=== PATIENT | female | born 1990 | race Caucasian/White ===

== ENCOUNTER 2016-07-16 11:24 | Day surgery (SDC) | payer OTHER ==
[~2016-07-16] VITALS: Ht 160 cm; Wt 95.0 kg
[~2016-07-16 11:24] MED LIST: /INSULEV SQ; /LOR25TA OR; BACT800T OR; BACTROBAN; novolog
[2016-07-16] MEDS ORDERED: ONDANSETRON 4MG/2ML VIAL (J2405) As Ordered ONE ×2 (11:51→21:09)
[2016-07-16] MEDS ORDERED: MORPHINE 4 MG/ML 1ML SYRINGE As Ordered ONE ×2 (11:51→15:40)
[2016-07-16 12:14] LABS: BASO # 0.1 K/mm3 (0.0-0.2); BASO % 0.4 % (0.0-1.0); EOS # 0.2 K/mm3 (0.0-0.50); LARGE UNSTAINED CELL # 0.2 K/mm3 (0.0-0.4); LARGE UNSTAINED CELL % 0.8 % (0.0-4.0); LYMPH # 2.2 K/mm3 (1.5-6.5); LYMPH % 9.5 % (24.0-44.0); MEAN CORPUSCULAR HEMOGLOBIN 29.6 pg (27.0-33.0); MEAN CORPUSCULAR HGB CONC 35.2 g/dl (32.0-36.5); MEAN CORPUSCULAR VOLUME 84.3 fl (80.0-96.0); MONO # 0.8 K/mm3 (0.0-0.8); MONO % 3.4 % (0.0-5.0); NEUTROPHILS # 19.9 K/mm3 (1.8-7.7); PLATELET COUNT, AUTOMATED 415 k/mm3 (150-450); RED CELL DISTRIBUTION WIDTH 12.8 % (11.5-14.5); WHITE BLOOD COUNT 23.4 K/mm3 (4.0-10.0)
[2016-07-16 13:13] LABS: ALBUMIN 3.5 GM/DL (3.2-5.2); ALBUMIN/GLOBULIN RATIO 1.03 (1.00-1.93); ALKALINE PHOSPHATASE 58 U/L (45-117); ALT/SGPT 23 U/L (12-78); AMYLASE 23 U/L (25-115); ANION GAP 9 MEQ/L (8-16); AST/SGOT 9 U/L (15-37); BILIRUBIN,DIRECT 0.1 MG/DL (0.0-0.2); BILIRUBIN,TOTAL 0.5 MG/DL (0.2-1.0); BLOOD UREA NITROGEN 7 MG/DL (7-18); CALCIUM LEVEL 8.5 MG/DL (8.5-10.1); CARBON DIOXIDE LEVEL 23 MEQ/L (21-32); CHLORIDE LEVEL 107 MEQ/L (98-107); CREATININE FOR GFR 0.64 MG/DL (0.55-1.02); GLOMERULAR FILTRATION RATE > 60.0 (>60); GLUCOSE, FASTING 196 MG/DL (70-105); SODIUM LEVEL 139 MEQ/L (136-145); TOTAL PROTEIN 6.9 GM/DL (6.4-8.2)
[2016-07-16 13:14] LABS: CONTROL LINE HCG INT CTR LINE PRESENT
[2016-07-16] MEDS ORDERED: ISOVUE-370 76% 100ML VIAL (Q9967) As Ordered ONE (13:28)
--- NOTE | 2016-07-16 14:25 | REP ---
CT study of the abdomen pelvis with IV but without oral contrast: History: Appendicitis. Comparison CT study is from January 06, 2012. CT contrast dose: 100 mL of Isovue [address] findings: The lung bases are clear. There is no evidence of pleural effusion. The liver and the spleen are normal in size and homogeneous in texture postcontrast. No focal liver lesion is seen. No adrenal lesion is observed. There is calcific material layering in the dependent portion of gallbladder consistent with cholelithiasis. Gallbladder wall is not visibly thickened. Common bile duct does not appear to be dilated. Pancreas is unremarkable. The kidneys enhance symmetrically are morphologically intact. No uterine abnormality is seen. No ovarian mass lesion is seen. No free fluid is noted. Urinary bladder is unremarkable. Small and large intestinal bowel loops are normal in the abdomen and pelvis. There are some dorsal fibrotic changes in the extra spinal soft tissues and a right-sided L5 laminectomy defect is seen. Also noted is a right-sided pars defect at L5. The appendix is abnormal. It shows mural thickening, periappendiceal inflammation, and enhancement and some slight fluid thickening the pericolic gutter. It is posterior to the cecum rising along the lateral aspect of the pericolic gutter terminating just below the tip of the liver. No abscess or free air is seen. Impression: CT findings indicative of with acute appendicitis retrocecal appendix. No evidence of abscess or free air. Also noted is cholelithiasis. Postoperative changes are seen in the dorsal lumbar spine extra spinal soft tissues. A right L5 laminectomy is performed. Right-sided pars defect at L5. Signed by Willi Mcdowell MD 07/16/2016 02:50 P
[2016-07-16] MEDS ORDERED: INSUHUMDS SC (14:50)
[2016-07-16] MEDS ORDERED: IBUP800T23 PO (14:51)
[2016-07-16] MEDS ORDERED: ZOSYN 3.375 GM VIAL (J2543) As Ordered ONE (14:52)
--- NOTE | 2016-07-16 16:34 | HPE ---
DATE OF ADMISSION: 07/16/2016 CHIEF COMPLAINT: Right lower quadrant pain. HISTORY OF PRESENT ILLNESS: The patient is a 26-year-old type 1 diabetic female who presents with the history of right lower quadrant pain and nausea and vomiting. Her symptoms started around 1 o'clock this morning, woke her up from sleep with acid reflux and heartburn. This progressed on to some nausea eventually had emesis with an upset stomach. She started to take a nap early this morning and then the pain localized down the right lower quadrant. Because of that she decided to come the emergency room (ER) be evaluated. In the ER she had a white count of 23,[address] obtained which showed an abnormal appendix with periappendiceal inflammation and some fluid and thickening around the right posterior cecum. Therefore I was called to evaluate. On exam she is still having tenderness in the right lower quadrant. No fevers. Nausea and vomiting or controlled since entering the ER. No fevers, sweats or chills. No history of prior symptoms. No history of recent trauma to the area. She has been dealing with a strep throat and bronchitis for the past 2 months with elevated white count throughout the time. She was on antibiotics recently for the strep throat that just finished couple of days ago. Prior history of and L5 laminectomy. No other abdominal surgeries. PAST MEDICAL HISTORY: Type 1 diabetes, hypertension. PAST SURGICAL HISTORY: , L5 laminectomy. ALLERGIES: None. MEDICATIONS: Insulin. SOCIAL HISTORY: Smokes a pack a day. Denies any drug or alcohol usage. FAMILY HISTORY: Noncontributory. REVIEW OF SYSTEMS: Pertinent, positives, and negatives stated in the history of present illness (HPI). PHYSICAL EXAMINATION: General: Alert and oriented times three. No acute stress. Vital signs: Stable, afebrile. HEENT: Pupils equal round react to light accommodation. Heart: S1-S2 regular rate and rhythm. Lungs: Clear to auscultation bilaterally. Abdomen: Soft and tender to palpation right lower quadrant. No rebounding, guarding, rigidity. Bowel sounds positive. Extremities: No clubbing, cyanosis or edema. LABORATORY DATA: White count is 23.4, hemoglobin 14.8, platelets 415, potassium 4, glucose 196. ASSESSMENT/PLAN: The patient is 26-year-old female with signs and symptoms consistent with acute appendicitis. RECOMMENDATIONS: Proceed with laparoscopic possible open appendectomy. Risks, benefits procedure not limited but including bleeding, infection, hernia formation, damage to surrounding structures, need for further surgery discussed in detail with the patient. Informed was obtained and procedure to be planned. Postoperatively plan will be to discharge home. She will follow up me in the office in 2 weeks.
[2016-07-16] MEDS ORDERED: MIDAZOLAM INJ 2 MG/2 ML VIAL (J2250) As Ordered ONE (19:40)
[2016-07-16] MEDS ORDERED: fentaNYL 250 MCG/5 ML INJECTION (J3010) As Ordered ONE (19:41)
[2016-07-16] MEDS ORDERED: LIDOCAINE 2% INJ 100 MG/5 ML SDV (FOR ANES.) As Ordered ONE (19:42)
[2016-07-16] MEDS ORDERED: PROPOFOL 200 MG/20 ML VIAL As Ordered ONE ×2 (19:43→19:44)
[2016-07-16] MEDS ORDERED: ROCURONIUM BROMIDE 50 MG/5 ML VIAL As Ordered ONE ×2 (19:46→21:03)
--- NOTE | 2016-07-16 20:06 | EDDOCDS ---
Physician Documentation [facility] Name: Krystin Hollingsworth Age: 26 yrs Sex: Female : 1990 Arrival Date: 07/16/2016 Time: 11:24 Bed Admit Hold Private MD: Cristóbal Zelaya Disposition: 07/16/16 14:33 Hospitalization ordered by Gianluca Waite for Inpatient Admission. Preliminary diagnosis is Acute appendicitis. - Bed requested for Admit. - Status is Inpatient Admission. [facility] - Condition is Stable. - Problem is new. - Symptoms are unchanged. Historical: - Allergies: No known drug Allergies; - Home Meds: 1. humilog insulin pump daily - PMHx: Diabetes - IDDM: controlled; Hypertension; - PSHx: back surgery; ; - Social history: Smoking status: Patient uses tobacco products, current every day smoker. No barriers to communication noted, The patient speaks fluent Indian. - Family history: Not pertinent. - : The pt / caregiver states he / she is not on anticoagulants. Home medication list is obtained from the patient. - Exposure Risk Screening:: None identified. 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 js13 Vital Signs: 11:26 BP 159 / 92; Pulse 99; Resp 18; Temp 99.0(O); Pulse Ox 100% ; Weight 95.25 kg / 209.99 jrd lbs (R); Height 5 ft. 3 in. (160.02 cm); Pain 8/10; 12:37 BP 133 / 84; Pulse 89; Resp 20; Temp 99.1(TE); Pulse Ox 97% on R/A; Pain 8/10; jml1 19:56 BP 138 / 86; Pulse 96; Resp 18; Temp 98.6(T); Pulse Ox 96% on R/A; Pain 8/10; damion 20:01 BP 138 / 86; Pulse 96; Resp 16; Temp 98.6; Pulse Ox 96% ; Pain 8/10; cjh 11:26 Body Mass Index 37.20 (95.25 kg, 160.02 cm) jrd MDM: 11:47 IV Saline Lock ordered. ar2 11:47 Undress patient appropriately for examination ordered. ar2 11:47 NS 0.9% 1000 ml IV at bolus once ordered. ar2 11:47 Ondansetron 4 mg IVP once ordered. ar2 11:48 morphine 4 mg IVP once ordered. ar2 11:49 Amylase Ordered. EDMS 11:49 Basic Metabolic Profile Ordered. EDMS 11:49 CBC with Diff Ordered. EDMS 11:49 Lipase Ordered. EDMS 11:49 Liver Profile Ordered. EDMS 11:49 HCG,Serum Qualitative Ordered. EDMS 11:49 UA Ordered. EDMS 11:49 Urine Culture Ordered. EDMS 11:49 NOTHING BY MOUTH+DIET ordered. EDMS 12:31 Financial registration complete. lg 13:02 CBC with Diff Reviewed. ar2 13:02 UA Reviewed. ar2 13:19 Amylase Reviewed. ar2 13:19 Basic Metabolic Profile Reviewed. ar2 13:19 Liver Profile Reviewed. ar2 13:19 Lipase Reviewed. ar2 13:19 HCG,Serum Qualitative Reviewed. ar2 13:20 CT ABD & PELVIS: IV Contrast Only Ordered. EDMS 13:57 [facility] Payment Agreement was scanned into [employer] and attached to record. lg 14:23 Piperacillin-Tazobactam 3.375 grams IVPB once over 30 mins; dilute in 50mL of NS or D5W ar2 ordered. 14:33 BED REQUEST+ADM ordered. EDMS 15:37 Admission Orders was scanned into [employer] and attached to record. deg 15:39 morphine 4 mg IVP once ordered. yusra Administered Medications: 12:04 Drug: Ondansetron 4 mg Route: IVP; Site: left antecubital; yusra 12:04 Drug: morphine 4 mg Route: IVP; Site: left antecubital; yusra 12:05 Drug: NS 0.9% 1000 ml Route: IV; Rate: bolus; Site: left antecubital; yusra 15:04 Drug: Piperacillin-Tazobactam 3.375 grams [piperacillin-tazobactam 3.375 gram dls intravenous solution] Route: IVPB; Infused Over: 30 mins; Site: left antecubital; 16:01 Follow up: IV Status: Completed infusion dls 16:09 Follow up: IV Status: Completed infusion dls 15:44 Drug: morphine 4 mg Route: IVP; Site: left antecubital; yusra Signatures: Dispatcher [employer] EDMS Adelina España, Occupational Health Specialist Unit deg Luis ParrishRN RN Cinthya Whitaker, Reg Reg lg Reinaldo Flores, Paty Lopez PA-CRN RN js13 Elizabeth Robertson RN RN Tiffanie Kat RN dls The chart was reviewed and I authenticate all verbal orders and agree with the evaluation and treatment provided.Attachments: 13:57 [facility] Payment Agreement lg 15:37 Admission Orders deg MTDD
--- NOTE | 2016-07-16 20:07 | EDDOCDS ---
Nurse's Notes [facility] Name: Krystin Hollingsworth Age: 26 yrs Sex: Female : 1990 Arrival Date: 07/16/2016 Time: 11:24 Bed Admit Hold Private MD: Cristóbal Zelaya Diagnosis: Acute appendicitis Presentation: 07/16 11:37 Presenting complaint: Patient states: Patient states pain in her right flank area along js13 with N/V. Patient states the pain started this morning at 0100 started with heartburn and ended with right flank pain. Acute neurological deficits are not present. Mechanism of Injury: No Mechanism of Injury. Adult Sepsis Screening: The patient does not have new or worsening altered mentation. Patient's respiratory rate is less than 22. Systolic blood pressure is greater than 100. Patient has a qSOFA score of 0- Negative Sepsis Screen. Suicide/Homicide risk assessment- the patient denies having any suicidal and/or homicidal ideations and does not present with any other emotional, behavioral or mental health complaints. Status: Patient is not a consulting services associate or dependent. Transition of care: patient was not received from another setting of care. 11:37 Method Of Arrival: Walkin/Carried/Asstd js13 11:37 Acuity: KALPANA Level 3 js13 Triage Assessment: 11:40 General: Appears in no apparent distress, Behavior is appropriate for age, cooperative. js13 Pain: Location: right flank Pain currently is 8 out of 10 on a pain scale. Pt Declines HIV testing. Neurological: Level of Consciousness is awake, alert. Derm: Skin is pink, warm & dry. Musculoskeletal: No deficits noted. 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 js13 Historical: - Allergies: No known drug Allergies; - Home Meds: 1. humilog insulin pump daily - PMHx: Diabetes - IDDM: controlled; Hypertension; - PSHx: back surgery; ; - Social history: Smoking status: Patient uses tobacco products, current every day smoker. No barriers to communication noted, The patient speaks fluent Bermudian. - Family history: Not pertinent. - : The pt / caregiver states he / she is not on anticoagulants. Home medication list is obtained from the patient. - Exposure Risk Screening:: None identified. Screenin:05 Screening information is obtained from the patient. Fall risk: No risks identified. jmk Assistance ADL's: requires no assistance with activities of daily living. Abuse/DV Screen: The patient / caregiver reports he/she is: not in a situation that causes fear, pain or injury. Nutritional screening: No deficits noted. Advance Directives: Currently, there is no health care proxy. There is no active DNR order. There is no living will. There is no Power of Flame Hardening Machine Setter. Advance directive information has not previously been placed in an [facility] medical record. home support is adequate. Assessment: 12:05 General: Appears uncomfortable, skin warm and dry color satisfactory. moist p ink oral jmk mucosa. abdomen obese and non distended with bowel sounds present x 4. Increased pain with palpation to mid to right upper abdomen.. 12:05 GI: Abdomen is non- distended obese, Bowel sounds present X 4 quads. Abd is soft X 4 jmk quads Abd is tender to palpation in right upper quadrant. 12:58 General: Appears reports 7/10 discomfort. bolus continues.. jmk 14:01 General: Pt to CT via w/c and returned IV site remains patent and clear.. dls 15:45 General: Appears exam completed by dr marie. orders recvd and in progress. medicated jmk for 9/10 discomfort. awaiting admission/ bed avail.. 17:18 General: Appears states 5/10 discomfort which is adequate control per patient. jmk Continues to be NPO. Patiently awaiting OR avail.. 20:01 General: Appears in no apparent distress, uncomfortable, Behavior is appropriate for [facility] age, cooperative, pleasant, reports increased pain, awaiting OR, transport pending. GI:. GI: Reports lower abdominal pain. Derm: Skin is pink, warm & dry. Vital Signs: 11:26 BP 159 / 92; Pulse 99; Resp 18; Temp 99.0(O); Pulse Ox 100% ; Weight 95.25 kg (R); jrd Height 5 ft. 3 in. (160.02 cm); Pain 8/10; 12:37 BP 133 / 84; Pulse 89; Resp 20; Temp 99.1(TE); Pulse Ox 97% on R/A; Pain 8/10; jml1 19:56 BP 138 / 86; Pulse 96; Resp 18; Temp 98.6(T); Pulse Ox 96% on R/A; Pain 8/10; damion 20:01 BP 138 / 86; Pulse 96; Resp 16; Temp 98.6; Pulse Ox 96% ; Pain 8/10; cjh 11:26 Body Mass Index 37.20 (95.25 kg, 160.02 cm) [facility] Vitals: 11:26 Log In Time: July 16, 2016 at 11:26. d ED Course: 11:25 Patient visited by Hitesh Knight PCA. jrd 11:25 Patient moved to Waiting jrd 11:26 Cristóbal Zelaya is Private Physician. jrd 11:27 Patient visited by Hitesh Knight PCA. jrd 11:27 Patient moved to Pre RCE jrd 11:39 Triage Initiated js13 11:41 Patient visited by Paty Eubanks RN. js13 11:42 Reinaldo Flores PA-C is PHCP. ar2 11:42 Zeny Tovar MD is Attending Physician. ar2 11:42 Patient moved to Triage 2 js13 11:43 Patient visited by Reinaldo Flores PA-C. ar2 11:46 Patient moved to I3 / M3 js13 11:46 Patient moved to Triage 2 ar3 11:50 Patient moved to I3 / M3 jml1 11:51 Urine Culture Sent. ar3 11:51 UA Sent. ar3 12:05 The patient / caregiver is instructed regarding the plan of care and ED course. jmk 12:05 HCG,Serum Qualitative Sent. jmk 12:05 Amylase Sent. jmk 12:05 Basic Metabolic Profile Sent. jmk 12:05 Inserted saline lock: 20 gauge in left antecubital area. jmk 12:08 Patient visited by Luis Parrish,SENTHIL. jmk 12:38 Patient visited by Reji Garza. jml1 12:58 Patient visited by Luis Parrish,SENTHIL. jmk 13:56 Patient name changed from Krystin\S\Radha\S\Edel\S\ to Krystin\S\A\S\Edel. EDMS 13:57 [facility] Payment Agreement was scanned into [employer] and attached to record. lg 14:01 Patient visited by Tiffanie Ambrocio RN. dls 14:33 Bryden, Gianluca, DO is Hospitalizing Provider. ar2 14:44 CT ABD & PELVIS: IV Contrast Only Returned. EDMS 15:37 Admission Orders was scanned into [facility] and attached to record. deg 15:46 Patient visited by Luis Parrish RN. jmk 18:02 Patient moved to Admit Hold js13 19:57 Patient visited by Luci Hale PCA. damion 20:01 No procedures done that require assistance. [facility] Administered Medications: 12:04 Drug: Ondansetron 4 mg Route: IVP; Site: left antecubital; jmk 12:04 Drug: morphine 4 mg Route: IVP; Site: left antecubital; teok 12:05 Drug: NS 0.9% 1000 ml Route: IV; Rate: bolus; Site: left antecubital; teok 15:04 Drug: Piperacillin-Tazobactam 3.375 grams [piperacillin-tazobactam 3.375 gram dls intravenous solution] Route: IVPB; Infused Over: 30 mins; Site: left antecubital; 16:01 Follow up: IV Status: Completed infusion dls 16:09 Follow up: IV Status: Completed infusion dls 15:44 Drug: morphine 4 mg Route: IVP; Site: left antecubital; [facility] Order Results: Lab Order: Amylase; SPEC'M 07/16/16 12:38 Test: AMYLASE; Value: 23; Range: 25-115; Abnormal: Below low normal; Units: U/L; Status: F Lab Order: Basic Metabolic Profile; SPEC'M 07/16/16 12:38 Test: GLUCOSE, FASTING; Value: 196; Range: 70-105; Abnormal: Above high normal; Units: MG/DL; Status: F Test: BLOOD UREA NITROGEN; Value: 7; Range: 7-18; Units: MG/DL; Status: F Test: CREATININE FOR GFR; Value: 0.64; Range: 0.55-1.02; Units: MG/DL; Status: F Test: GLOMERULAR FILTRATION RATE; Value: > 60.0; Range: >60; Status: F Test: SODIUM LEVEL; Value: 139; Range: 136-145; Units: MEQ/L; Status: F Test: POTASSIUM SERUM; Value: 4.0; Range: 3.5-5.1; Units: MEQ/L; Status: F Test: CHLORIDE LEVEL; Value: 107; Range: 98-107; Units: MEQ/L; Status: F Test: CARBON DIOXIDE LEVEL; Value: 23; Range: 21-32; Units: MEQ/L; Status: F Test: ANION GAP; Value: 9; Range: 8-16; Units: MEQ/L; Status: F Test: CALCIUM LEVEL; Value: 8.5; Range: 8.5-10.1; Units: MG/DL; Status: F Test Note: ; Units are mL/min/1.73 m2 Chronic Kidney Disease Staging per NKF: Stage I & II GFR >=60 Normal to Mildly Decreased Stage III GFR 30-59 Moderately Decreased Stage IV GFR 15-29 Severely Decreased Stage V GFR <15 Very Little GFR Left ESRD GFR <15 on STATEMENT SERVICES REPRESENTATIVE Lab Order: CBC with Diff; SPEC'M 07/16/16 11:50 Test: WHITE BLOOD COUNT; Value: 23.4; Range: 4.0-10.0; Abnormal: Above high normal; Units: K/mm3; Status: F Test: RED BLOOD COUNT; Value: 4.98; Range: 4.00-5.40; Units: M/mm3; Status: F Test: HEMOGLOBIN; Value: 14.8; Range: 12.0-16.0; Units: g/dl; Status: F Test: HEMATOCRIT; Value: 42.0; Range: 36.0-47.0; Units: %; Status: F Test: MEAN CORPUSCULAR VOLUME; Value: 84.3; Range: 80.0-96.0; Units: fl; Status: F Test: MEAN CORPUSCULAR HEMOGLOBIN; Value: 29.6; Range: 27.0-33.0; Units: pg; Status: F Test: MEAN CORPUSCULAR HGB CONC; Value: 35.2; Range: 32.0-36.5; Units: g/dl; Status: F Test: RED CELL DISTRIBUTION WIDTH; Value: 12.8; Range: 11.5-14.5; Units: %; Status: F Test: PLATELET COUNT, AUTOMATED; Value: 415; Range: 150-450; Units: k/mm3; Status: F Test: NEUTROPHILS %; Value: 85.0; Range: 36.0-66.0; Abnormal: Above high normal; Units: %; Status: F Test: LYMPH %; Value: 9.5; Range: 24.0-44.0; Abnormal: Below low normal; Units: %; Status: F Test: MONO %; Value: 3.4; Range: 0.0-5.0; Units: %; Status: F Test: EOS %; Value: 1.0; Range: 0.0-3.0; Units: %; Status: F Test: BASO %; Value: 0.4; Range: 0.0-1.0; Units: %; Status: F Test: LARGE UNSTAINED CELL %; Value: 0.8; Range: 0.0-4.0; Units: %; Status: F Test: NEUTROPHILS #; Value: 19.9; Range: 1.8-7.7; Abnormal: Above high normal; Units: K/mm3; Status: F Test: LYMPH #; Value: 2.2; Range: 1.5-6.5; Units: K/mm3; Status: F Test: MONO #; Value: 0.8; Range: 0.0-0.8; Units: K/mm3; Status: F Test: EOS #; Value: 0.2; Range: 0.0-0.50; Units: K/mm3; Status: F Test: BASO #; Value: 0.1; Range: 0.0-0.2; Units: K/mm3; Status: F Test: LARGE UNSTAINED CELL #; Value: 0.2; Range: 0.0-0.4; Units: K/mm3; Status: F Lab Order: Lipase; SPEC'M 07/16/16 12:38 Test: LIPASE; Value: 78; Range: 73-393; Units: U/L; Status: F Lab Order: Liver Profile; SPEC'M 07/16/16 12:38 Test: AST/SGOT; Value: 9; Range: 15-37; Abnormal: Below low normal; Units: U/L; Status: F Test: ALT/SGPT; Value: 23; Range: 12-78; Units: U/L; Status: F Test: ALKALINE PHOSPHATASE; Value: 58; Range: 45-117; Units: U/L; Status: F Test: BILIRUBIN,TOTAL; Value: 0.5; Range: 0.2-1.0; Units: MG/DL; Status: F Test: BILIRUBIN,DIRECT; Value: 0.1; Range: 0.0-0.2; Units: MG/DL; Status: F Test: TOTAL PROTEIN; Value: 6.9; Range: 6.4-8.2; Units: GM/DL; Status: F Test: ALBUMIN; Value: 3.5; Range: 3.2-5.2; Units: GM/DL; Status: F Test: ALBUMIN/GLOBULIN RATIO; Value: 1.03; Range: 1.00-1.93; Status: F Lab Order: HCG,Serum Qualitative; SPEC'M 07/16/16 12:38 Test: HCG, SERUM QUALITATIVE; Value: NEGATIVE; Range: NEGATIVE; Status: F Lab Order: UA; SPEC'M 07/16/16 11:50 Test: APPEARANCE, URINE; Value: CLEAR; Range: CLEAR; Status: F Test: COLOR, URINE; Value: YELLOW; Range: YELLOW; Status: F Test: PH,URINE; Value: 5.0; Range: 5.0-9.0; Units: UNITS; Status: F Test: SPECIFIC GRAVITY URINE AUTO; Value: 1.018; Range: 1.002-1.035; Status: F Test: PROTEIN, URINE AUTO; Value: NEGATIVE; Range: NEGATIVE; Units: mg/dL; Status: F Test: GLUCOSE, URINE (UA) AUTO; Value: 2+; Range: NEGATIVE; Abnormal: Above high normal; Units: mg/dL; Status: F Test: KETONE, URINE AUTO; Value: 1+; Range: NEGATIVE; Abnormal: Above high normal; Units: mg/dL; Status: F Test: UROBILINOGEN, URINE AUTO; Value: 0.2; Range: 0.0-2.0; Units: mg/dL; Status: F Test: BILIRUBIN, URINE AUTO; Value: NEGATIVE; Range: NEGATIVE; Status: F Test: NITRITE, URINE AUTO; Value: NEGATIVE; Range: NEGATIVE; Status: F Test: LEUKOCYTE ESTERASE, URINE AUTO; Value: NEGATIVE; Range: NEGATIVE; Status: F Test: BLOOD, URINE BLOOD; Value: NEGATIVE; Range: NEGATIVE; Status: F Test: WBC, URINE AUTO; Value: 1; Range: 0-3; Units: /HPF; Status: F Test: RBC, URINE AUTO; Value: 1; Range: 0-3; Units: /HPF; Status: F Test: BACTERIA, URINE AUTO; Value: NEGATIVE; Range: NEGATIVE; Status: F Test: SQUAMOUS EPITHELIAL CELL UR AU; Value: 3; Range: 0-6; Units: /HPF; Status: F Test: HYALINE CAST, URINE AUTO; Value: 0; Range: 0-1; Units: /LPF; Status: F Radiology Order: CT ABD & PELVIS: IV Contrast Only Test: CT ABD & PELVIS: IV Contrast Only REASON FOR EXAMINATION: Appendicitis; CT study of the abdomen pelvis with IV but without oral contrast:; ; History: Appendicitis.; ; Comparison CT study is from January 06, 2012.; ; CT contrast dose: 100 mL of Isovue 370 is administered intravenously.; ; CT findings: The lung bases are clear. There is no evidence of pleural; effusion. The liver and the spleen are normal in size and homogeneous in texture; postcontrast. No focal liver lesion is seen. No adrenal lesion is observed.; There is calcific material layering in the dependent portion of gallbladder; consistent with cholelithiasis. Gallbladder wall is not visibly thickened.; Common bile duct does not appear to be dilated. Pancreas is unremarkable. The; kidneys enhance symmetrically are morphologically intact. No uterine abnormality; is seen. No ovarian mass lesion is seen. No free fluid is noted.; ; Urinary bladder is unremarkable. Small and large intestinal bowel loops are; normal in the abdomen and pelvis. There are some dorsal fibrotic changes in the; extra spinal soft tissues and a right-sided L5 laminectomy defect is seen. Also; noted is a right-sided pars defect at L5.; ; The appendix is abnormal. It shows mural thickening, periappendiceal; inflammation, and enhancement and some slight fluid thickening the pericolic; gutter. It is posterior to the cecum rising along the lateral aspect of the; pericolic gutter terminating just below the tip of the liver. No abscess or free; air is seen.; ; Impression:; ; CT findings indicative of with acute appendicitis retrocecal appendix. No; evidence of abscess or free air.; ; Also noted is cholelithiasis. Postoperative changes are seen in the dorsal; lumbar spine extra spinal soft tissues. A right L5 laminectomy is performed.; Right-sided pars defect at L5.; ; ; Signed by; Willi Mcdowell MD 07/16/2016 02:50 P; Outcome: 14:33 Decision to Hospitalize by Provider. ar2 20:01 Discharge Assessment: Patient awake, alert and oriented x 3. No cognitive and/or [facility] functional deficits noted. Patient verbalized understanding of disposition instructions. patient administered narcotics - yes. Patient was admitted to the hospital or transferred to another facility. The following High Risk Discharge criteria are identified: None. Admitted to OR. Condition: unchanged. CT Study completed. Property :Personal belongings accompany Pt. 20:06 Patient left the ED. [facility] Signatures: Dispatcher [employer] EDMS Adelina España, Rope Cleaner Unit deg Luis Parrish,RN RN Tiffanie Wilson, RN RN Cinthya Valle, Woody Reg lg Reinaldo Flores PA-C PALeonel ar2 Tonya Marrero, VISUAL SUPERVISOR VISUAL SUPERVISOR ar3 Luci Hale, VISUAL SUPERVISOR VISUAL SUPERVISOR Reji Anaya jml1 Paty Eubanks,SENTHIL NDIAYE js13 Elizabeth RobertsonRN RN [facility] Hitesh Knight, VISUAL SUPERVISOR VISUAL SUPERVISOR d [facility]
[2016-07-16] MEDS ORDERED: ceFAZolin 1GM INJ (J0690) As Ordered ONE (20:26)
[2016-07-16] MEDS ORDERED: BUPIVACAINE/EPIN 0.25% 30 ML VIAL As Ordered ONE (20:31)
[2016-07-16] MEDS ORDERED: METOCLOPRAMIDE INJ 10MG/2ML VIAL (J2765) As Ordered ONE (20:54)
[2016-07-16] MEDS ORDERED: SUGAMMADEX SODIUM 500 MG/5 ML VIAL (BRIDION) As Ordered ONE (21:09)
[2016-07-16] MEDS ORDERED: SENN1TAB2 PO (21:23)
[2016-07-16] MEDS ORDERED: NORC5TAB PO (21:23)
[2016-07-16] MEDS ORDERED: METOCLOPRAMIDE INJ 10MG/2ML VIAL (J2765) IV PRN (21:30)
[2016-07-16] MEDS ORDERED: ONDANSETRON 4MG/2ML VIAL (J2405) IV PRN (21:30)
[2016-07-16] MEDS ORDERED: KETOROLAC 30 MG/ML VIAL (J1885) IV PRN (21:30)
[2016-07-16] MEDS ORDERED: MEPERIDINE INJ 25 MG/ML VIAL (J2175) IV PRN (21:30)
[2016-07-16] MEDS ORDERED: fentaNYL 100 MCG/2 ML INJECTION (J3010) IV PRN (21:30)
[2016-07-16] MEDS ORDERED: LR 1,000 ML IV SCH (21:30)
[2016-07-16] MEDS ORDERED: NORCO, ANEXSIA 5/325MG TABLET (HYDROcodone/ACETAMINOPHEN) PO PRN (21:45)
[2016-07-16 22:10] VITALS: BP 139/85
[2016-07-16 22:40] VITALS: BP 127/80
[2016-07-16 23:40] VITALS: BP 128/66
[2016-07-17 00:40] VITALS: BP 129/68
[2016-07-17 01:40] VITALS: BP 120/66
[2016-07-17 02:40] VITALS: BP 128/71
[2016-07-17 06:00] VITALS: BP 125/78
[2016-07-17 08:00] VITALS: BP 141/95
--- NOTE | 2016-07-17 08:16 | RO ---
DATE OF PROCEDURE: 07/16/2016 PREOPERATIVE DIAGNOSIS: Acute appendicitis. POSTOPERATIVE DIAGNOSIS: Acute appendicitis. PROCEDURE: Laparoscopic appendectomy. SURGEON: Dr. Gianluca Waite. PHARMACY PICKING TECH: None. ANESTHESIA: General. ESTIMATED BLOOD LOSS: 5. COMPLICATIONS: None. INDICATIONS FOR PROCEDURE: The patient is a 26-year-old female who presents with right lower quadrant pain that started at 1 o'clock this morning. Came to the emergency room, had an elevated white count as well as CT findings consistent with acute appendicitis. Recommendations to proceed with laparoscopic, possible open appendectomy. Risks and benefits of the procedure not limited to but including bleeding, infection, hernia formation, damage to surrounding structures, need for further surgery were discussed in detail with the patient. Informed consent was obtained and procedure was planned. PROCEDURE: The patient was brought back to operating room two. After sufficient sedation, the abdomen was sterilely prepped and draped. Next time out was done to confirm proper patient and proper procedure. Following that, a 5 mm incision made in left upper quadrant. Veress needle was inserted and the abdomen was insufflated to 15 mmHg. Next, Veress needle was removed. 5 mm OptiView port was used to gain access to the abdomen. Once the abdomen was entered, another 8 mm port was placed supraumbilically and a 5 mm port in the right lower quadrant. The cecum was then grasped and elevated superiorly and towards the midline revealing the appendix posterior and lateral to it. The appendix was grasped and elevated. Mesoappendix was taken down using Enseal to the base of the appendix. Two PDS Endoloops were placed around the base of the appendix till ligated and it was amputated with the Enseal and brought out through the umbilical port site with a 5 mm EndoCatch bag. The right lower quadrant was then examined one last time to confirm hemostasis. Abdomen was desufflated. Skin incisions were closed with #4-0 Vicryl subcuticular sutures. The abdomen was cleaned and dried. Steri-Strips, 4 x,4 and tape were applied, thus ending procedure.
--- NOTE | 2016-07-18 21:07 | EDDOCDS ---
Physician Documentation [facility] Name: Krystin Hollingsworth Age: 26 yrs Sex: Female : 1990 Arrival Date: 07/16/2016 Time: 11:24 Bed Admit Hold Private MD: Cristóbal Zelaya Disposition: 07/16/16 14:33 Hospitalization ordered by Gianluca Waite for Inpatient Admission. Preliminary diagnosis is Acute appendicitis. - Bed requested for Admit. - [facility] - Condition is Stable. - Problem is new. - Symptoms are unchanged. Historical: - Allergies: No known drug Allergies; - Home Meds: 1. humilog insulin pump daily - PMHx: Diabetes - IDDM: controlled; Hypertension; - PSHx: back surgery; ; - Social history: Smoking status: Patient uses tobacco products, current every day smoker. No barriers to communication noted, The patient speaks fluent Slovak. - Family history: Not pertinent. - : The pt / caregiver states he / she is not on anticoagulants. Home medication list is obtained from the patient. - Exposure Risk Screening:: None identified. 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 [id number] Vital Signs: 11:26 BP 159 / 92; Pulse 99; Resp 18; Temp 99.0(O); Pulse Ox 100% ; Weight 95.25 kg / 209.99 jrd lbs (R); Height 5 ft. 3 in. (160.02 cm); Pain 8/10; 12:37 BP 133 / 84; Pulse 89; Resp 20; Temp 99.1(TE); Pulse Ox 97% on R/A; Pain 8/10; jml1 19:56 BP 138 / 86; Pulse 96; Resp 18; Temp 98.6(T); Pulse Ox 96% on R/A; Pain 8/10; damion 20:01 BP 138 / 86; Pulse 96; Resp 16; Temp 98.6; Pulse Ox 96% ; Pain 8/10; cjh 11:26 Body Mass Index 37.20 (95.25 kg, 160.02 cm) jrd MDM: 11:47 IV Saline Lock ordered. ar2 11:47 Undress patient appropriately for examination ordered. ar2 11:47 NS 0.9% 1000 ml IV at bolus once ordered. ar2 11:47 Ondansetron 4 mg IVP once ordered. ar2 11:48 morphine 4 mg IVP once ordered. ar2 11:49 Amylase Ordered. EDMS 11:49 Basic Metabolic Profile Ordered. EDMS 11:49 CBC with Diff Ordered. EDMS 11:49 Lipase Ordered. EDMS 11:49 Liver Profile Ordered. EDMS 11:49 HCG,Serum Qualitative Ordered. EDMS 11:49 UA Ordered. EDMS 11:49 Urine Culture Ordered. EDMS 11:49 NOTHING BY MOUTH+DIET ordered. EDMS 12:31 Financial registration complete. lg 13:02 CBC with Diff Reviewed. ar2 13:02 UA Reviewed. ar2 13:19 Amylase Reviewed. ar2 13:19 Basic Metabolic Profile Reviewed. ar2 13:19 Liver Profile Reviewed. ar2 13:19 Lipase Reviewed. ar2 13:19 HCG,Serum Qualitative Reviewed. ar2 13:20 CT ABD & PELVIS: IV Contrast Only Ordered. EDMS 13:57 [facility] [place] Agreement was scanned into [employer] and attached to record. lg 14:23 Piperacillin-Tazobactam 3.375 grams IVPB once over 30 mins; dilute in 50mL of NS or D5W ar2 ordered. 14:33 BED REQUEST+ADM ordered. EDMS 15:37 Admission Orders was scanned into [employer] and attached to record. deg 15:39 morphine 4 mg IVP once ordered. yusra 07/17 11:00 T-Sheet-- Draft Copy was scanned into [employer] and attached to record. gb 11:01 Consents was scanned into [employer] and attached to record. gb 11:01 Radiology Report was scanned into [employer] and attached to record. gb Administered Medications: 07/16 12:04 Drug: Ondansetron 4 mg Route: IVP; Site: left antecubital; jmk 12:04 Drug: morphine 4 mg Route: IVP; Site: left antecubital; teok 12:05 Drug: NS 0.9% 1000 ml Route: IV; Rate: bolus; Site: left antecubital; k 15:04 Drug: Piperacillin-Tazobactam 3.375 grams [piperacillin-tazobactam 3.375 gram dls intravenous solution] Route: IVPB; Infused Over: 30 mins; Site: left antecubital; 16:01 Follow up: IV Status: Completed infusion dls 16:09 Follow up: IV Status: Completed infusion dls 15:44 Drug: morphine 4 mg Route: IVP; Site: left antecubital; yusra Signatures: Dispatcher [employer] Adelina Mas, Mechanical Striper Unit deg Luis ParrishRN RN Roro Chung, Reg Reg gb Cinthya Reeder, Reg Reg lg Reinaldo Flores PA-C PAPaty IrvingRN RN [id number] Elizabeth Robertson RN RN [facility] Tiffanie Ambrocio RN dls The chart was reviewed and I authenticate all verbal orders and agree with the evaluation and treatment provided.Attachments: 13:57 [facility] Payment Agreement lg 15:37 Admission Orders deg 07/17 11:00 T-Sheet-- Draft Copy gb Chart Complete MTDD
--- NOTE | 2016-07-18 21:07 | EDDOCDS ---
Physician Documentation [facility] Name: Krystin Hollingsworth Age: 26 yrs Sex: Female : 1990 Arrival Date: 07/16/2016 Time: 11:24 Bed Admit Hold Private MD: Cristóbal Zelaya Disposition: 07/16/16 14:33 Hospitalization ordered by Gianluca Waite for Inpatient Admission. Preliminary diagnosis is Acute appendicitis. - Bed requested for Admit. - Status is Inpatient Admission. [facility] - Condition is Stable. - Problem is new. - Symptoms are unchanged. Historical: - Allergies: No known drug Allergies; - Home Meds: 1. humilog insulin pump daily - PMHx: Diabetes - IDDM: controlled; Hypertension; - PSHx: back surgery; ; - Social history: Smoking status: Patient uses tobacco products, current every day smoker. No barriers to communication noted, The patient speaks fluent Maldivian. - Family history: Not pertinent. - : The pt / caregiver states he / she is not on anticoagulants. Home medication list is obtained from the patient. - Exposure Risk Screening:: None identified. 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 [id number] Vital Signs: 11:26 BP 159 / 92; Pulse 99; Resp 18; Temp 99.0(O); Pulse Ox 100% ; Weight 95.25 kg / 209.99 jrd lbs (R); Height 5 ft. 3 in. (160.02 cm); Pain 8/10; 12:37 BP 133 / 84; Pulse 89; Resp 20; Temp 99.1(TE); Pulse Ox 97% on R/A; Pain 8/10; jml1 19:56 BP 138 / 86; Pulse 96; Resp 18; Temp 98.6(T); Pulse Ox 96% on R/A; Pain 8/10; damion 20:01 BP 138 / 86; Pulse 96; Resp 16; Temp 98.6; Pulse Ox 96% ; Pain 8/10; cjh 11:26 Body Mass Index 37.20 (95.25 kg, 160.02 cm) jrd MDM: 11:47 IV Saline Lock ordered. ar2 11:47 Undress patient appropriately for examination ordered. ar2 11:47 NS 0.9% 1000 ml IV at bolus once ordered. ar2 11:47 Ondansetron 4 mg IVP once ordered. ar2 11:48 morphine 4 mg IVP once ordered. ar2 11:49 Amylase Ordered. EDMS 11:49 Basic Metabolic Profile Ordered. EDMS 11:49 CBC with Diff Ordered. EDMS 11:49 Lipase Ordered. EDMS 11:49 Liver Profile Ordered. EDMS 11:49 HCG,Serum Qualitative Ordered. EDMS 11:49 UA Ordered. EDMS 11:49 Urine Culture Ordered. EDMS 11:49 NOTHING BY MOUTH+DIET ordered. EDMS 12:31 Financial registration complete. lg 13:02 CBC with Diff Reviewed. ar2 13:02 UA Reviewed. ar2 13:19 Amylase Reviewed. ar2 13:19 Basic Metabolic Profile Reviewed. ar2 13:19 Liver Profile Reviewed. ar2 13:19 Lipase Reviewed. ar2 13:19 HCG,Serum Qualitative Reviewed. ar2 13:20 CT ABD & PELVIS: IV Contrast Only Ordered. EDMS 13:57 [facility] [place] Agreement was scanned into [employer] and attached to record. lg 14:23 Piperacillin-Tazobactam 3.375 grams IVPB once over 30 mins; dilute in 50mL of NS or D5W ar2 ordered. 14:33 BED REQUEST+ADM ordered. EDMS 15:37 Admission Orders was scanned into [employer] and attached to record. deg 15:39 morphine 4 mg IVP once ordered. yusra 07/17 11:00 T-Sheet-- Draft Copy was scanned into [employer] and attached to record. gb 11:01 Consents was scanned into [employer] and attached to record. gb 11:01 Radiology Report was scanned into [employer] and attached to record. gb Administered Medications: 07/16 12:04 Drug: Ondansetron 4 mg Route: IVP; Site: left antecubital; jmk 12:04 Drug: morphine 4 mg Route: IVP; Site: left antecubital; teok 12:05 Drug: NS 0.9% 1000 ml Route: IV; Rate: bolus; Site: left antecubital; k 15:04 Drug: Piperacillin-Tazobactam 3.375 grams [piperacillin-tazobactam 3.375 gram dls intravenous solution] Route: IVPB; Infused Over: 30 mins; Site: left antecubital; 16:01 Follow up: IV Status: Completed infusion dls 16:09 Follow up: IV Status: Completed infusion dls 15:44 Drug: morphine 4 mg Route: IVP; Site: left antecubital; yusra Signatures: Dispatcher [employer] Adelina Mas, Right Of Way Man Unit deg Luis ParrishRN RN Roro Chung, Reg Reg gb Cinthya Reeder, Reg Reg lg Reinaldo Flores PA-C PAPaty IrvingRN RN [id number] Elizabeth Robertson RN RN [facility] Tiffanie Ambrocio RN dls The chart was reviewed and I authenticate all verbal orders and agree with the evaluation and treatment provided.Attachments: 13:57 [facility] Payment Agreement lg 15:37 Admission Orders deg 07/17 11:00 T-Sheet-- Draft Copy gb Chart Complete MTDD
--- NOTE | 2016-07-18 21:07 | EDDOCDS ---
Nurse's Notes [facility] Name: Krystin Hollingsworth Age: 26 yrs Sex: Female : 1990 Arrival Date: 07/16/2016 Time: 11:24 Bed Admit Hold Private MD: Cristóbal Zelaya Diagnosis: Acute appendicitis Presentation: 07/16 11:37 Presenting complaint: Patient states: Patient states pain in her right flank area along js13 with N/V. Patient states the pain started this morning at 0100 started with heartburn and ended with right flank pain. Acute neurological deficits are not present. Mechanism of Injury: No Mechanism of Injury. Adult Sepsis Screening: The patient does not have new or worsening altered mentation. Patient's respiratory rate is less than 22. Systolic blood pressure is greater than 100. Patient has a qSOFA score of 0- Negative Sepsis Screen. Suicide/Homicide risk assessment- the patient denies having any suicidal and/or homicidal ideations and does not present with any other emotional, behavioral or mental health complaints. 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 Transition of care: patient was not received from another setting of care. 11:37 Method Of Arrival: Walkin/Carried/Asstd js13 11:37 Acuity: KALPANA Level 3 js13 Triage Assessment: 11:40 General: Appears in no apparent distress, Behavior is appropriate for age, cooperative. js13 Pain: Location: right flank Pain currently is 8 out of 10 on a pain scale. Pt Declines HIV testing. Neurological: Level of Consciousness is awake, alert. Derm: Skin is pink, warm & dry. Musculoskeletal: No deficits noted. 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 js13 Historical: - Allergies: No known drug Allergies; - Home Meds: 1. humilog insulin pump daily - PMHx: Diabetes - IDDM: controlled; Hypertension; - PSHx: back surgery; ; - Social history: Smoking status: Patient uses tobacco products, current every day smoker. No barriers to communication noted, The patient speaks fluent Macanese. - Family history: Not pertinent. - : The pt / caregiver states he / she is not on anticoagulants. Home medication list is obtained from the patient. - Exposure Risk Screening:: None identified. Screenin:05 Screening information is obtained from the patient. Fall risk: No risks identified. jmk Assistance ADL's: requires no assistance with activities of daily living. Abuse/DV Screen: The patient / caregiver reports he/she is: not in a situation that causes fear, pain or injury. Nutritional screening: No deficits noted. Advance Directives: Currently, there is no health care proxy. There is no active DNR order. There is no living will. There is no Power of Rim Fire Priming Operator. Advance directive information has not previously been placed in an [facility] medical record. home support is adequate. Assessment: 12:05 General: Appears uncomfortable, skin warm and dry color satisfactory. moist p ink oral jmk mucosa. abdomen obese and non distended with bowel sounds present x 4. Increased pain with palpation to mid to right upper abdomen.. 12:05 GI: Abdomen is non- distended obese, Bowel sounds present X 4 quads. Abd is soft X 4 jmk quads Abd is tender to palpation in right upper quadrant. 12:58 General: Appears reports 7/10 discomfort. bolus continues.. jmk 14:01 General: Pt to CT via w/c and returned IV site remains patent and clear.. dls 15:45 General: Appears exam completed by dr marie. orders recvd and in progress. medicated jmk for 9/10 discomfort. awaiting admission/ bed avail.. 17:18 General: Appears states 5/10 discomfort which is adequate control per patient. jmk Continues to be NPO. Patiently awaiting OR avail.. 20:01 General: Appears in no apparent distress, uncomfortable, Behavior is appropriate for [facility] age, cooperative, pleasant, reports increased pain, awaiting OR, transport pending. GI:. GI: Reports lower abdominal pain. Derm: Skin is pink, warm & dry. Vital Signs: 11:26 BP 159 / 92; Pulse 99; Resp 18; Temp 99.0(O); Pulse Ox 100% ; Weight 95.25 kg (R); jrd Height 5 ft. 3 in. (160.02 cm); Pain 8/10; 12:37 BP 133 / 84; Pulse 89; Resp 20; Temp 99.1(TE); Pulse Ox 97% on R/A; Pain 8/10; jml1 19:56 BP 138 / 86; Pulse 96; Resp 18; Temp 98.6(T); Pulse Ox 96% on R/A; Pain 8/10; damion 20:01 BP 138 / 86; Pulse 96; Resp 16; Temp 98.6; Pulse Ox 96% ; Pain 8/10; cjh 11:26 Body Mass Index 37.20 (95.25 kg, 160.02 cm) [facility] Vitals: 11:26 Log In Time: July 16, 2016 at 11:26. d ED Course: 11:25 Patient visited by Hitesh Knight PCA. jrd 11:25 Patient moved to Waiting jrd 11:26 Cristóbal Zelaya is Private Physician. jrd 11:27 Patient visited by Hitesh Knight PCA. jrd 11:27 Patient moved to Pre RCE jrd 11:39 Triage Initiated js13 11:41 Patient visited by Paty Eubanks RN. js13 11:42 Reinaldo Flores PA-C is PHCP. ar2 11:42 Zeny Tovar MD is Attending Physician. ar2 11:42 Patient moved to Triage 2 js13 11:43 Patient visited by Reinaldo Flores PA-C. ar2 11:46 Patient moved to I3 / M3 js13 11:46 Patient moved to Triage 2 ar3 11:50 Patient moved to I3 / M3 jml1 11:51 Urine Culture Sent. ar3 11:51 UA Sent. ar3 12:05 The patient / caregiver is instructed regarding the plan of care and ED course. jmk 12:05 HCG,Serum Qualitative Sent. jmk 12:05 Amylase Sent. jmk 12:05 Basic Metabolic Profile Sent. jmk 12:05 Inserted saline lock: 20 gauge in left antecubital area. jmk 12:08 Patient visited by Luis Parrish,SENTHIL. jmk 12:38 Patient visited by Reji Garza. jml1 12:58 Patient visited by Luis Parrish,SENTHIL. jmk 13:56 Patient name changed from Krystin\S\Radha\S\Edel\S\ to Krystin\S\A\S\Edel. EDMS 13:57 [facility] Payment Agreement was scanned into HDmessaging and attached to record. lg 14:01 Patient visited by Tiffanie Ambrocio RN. dls 14:33 Bryden, Gianluca, DO is Hospitalizing Provider. ar2 14:44 CT ABD & PELVIS: IV Contrast Only Returned. EDMS 15:37 Admission Orders was scanned into HDmessaging and attached to record. deg 15:46 Patient visited by Luis Parrish RN. teok 18:02 Patient moved to Admit Hold js13 19:57 Patient visited by Luci Hale PCA. damion 20:01 No procedures done that require assistance. [facility] 07/17 11:00 T-Sheet-- Draft Copy was scanned into HDmessaging and attached to record. gb 11:01 Consents was scanned into MEDHOSpreadknowledge and attached to record. 11:01 Radiology Report was scanned into HDmessaging and attached to record. Administered Medications: 07/16 12:04 Drug: Ondansetron 4 mg Route: IVP; Site: left antecubital; yusra 12:04 Drug: morphine 4 mg Route: IVP; Site: left antecubital; yusra 12:05 Drug: NS 0.9% 1000 ml Route: IV; Rate: bolus; Site: left antecubital; yusra 15:04 Drug: Piperacillin-Tazobactam 3.375 grams [piperacillin-tazobactam 3.375 gram dls intravenous solution] Route: IVPB; Infused Over: 30 mins; Site: left antecubital; 16:01 Follow up: IV Status: Completed infusion dls 16:09 Follow up: IV Status: Completed infusion dls 15:44 Drug: morphine 4 mg Route: IVP; Site: left antecubital; yusra Attachments: 11:01 Consents gb Order Results: Lab Order: Amylase; SPEC'M 07/16/16 12:38 Test: AMYLASE; Value: 23; Range: 25-115; Abnormal: Below low normal; Units: U/L; Status: F Lab Order: Basic Metabolic Profile; SPEC'M 07/16/16 12:38 Test: GLUCOSE, FASTING; Value: 196; Range: 70-105; Abnormal: Above high normal; Units: MG/DL; Status: F Test: BLOOD UREA NITROGEN; Value: 7; Range: 7-18; Units: MG/DL; Status: F Test: CREATININE FOR GFR; Value: 0.64; Range: 0.55-1.02; Units: MG/DL; Status: F Test: GLOMERULAR FILTRATION RATE; Value: > 60.0; Range: >60; Status: F Test: SODIUM LEVEL; Value: 139; Range: 136-145; Units: MEQ/L; Status: F Test: POTASSIUM SERUM; Value: 4.0; Range: 3.5-5.1; Units: MEQ/L; Status: F Test: CHLORIDE LEVEL; Value: 107; Range: 98-107; Units: MEQ/L; Status: F Test: CARBON DIOXIDE LEVEL; Value: 23; Range: 21-32; Units: MEQ/L; Status: F Test: ANION GAP; Value: 9; Range: 8-16; Units: MEQ/L; Status: F Test: CALCIUM LEVEL; Value: 8.5; Range: 8.5-10.1; Units: MG/DL; Status: F Test Note: ; Units are mL/min/1.73 m2 Chronic Kidney Disease Staging per NKF: Stage I & II GFR >=60 Normal to Mildly Decreased Stage III GFR 30-59 Moderately Decreased Stage IV GFR 15-29 Severely Decreased Stage V GFR <15 Very Little GFR Left ESRD GFR <15 on FIBERGLASS QUALITY TECHNICIAN Lab Order: CBC with Diff; SPEC'M 07/16/16 11:50 Test: WHITE BLOOD COUNT; Value: 23.4; Range: 4.0-10.0; Abnormal: Above high normal; Units: K/mm3; Status: F Test: RED BLOOD COUNT; Value: 4.98; Range: 4.00-5.40; Units: M/mm3; Status: F Test: HEMOGLOBIN; Value: 14.8; Range: 12.0-16.0; Units: g/dl; Status: F Test: HEMATOCRIT; Value: 42.0; Range: 36.0-47.0; Units: %; Status: F Test: MEAN CORPUSCULAR VOLUME; Value: 84.3; Range: 80.0-96.0; Units: fl; Status: F Test: MEAN CORPUSCULAR HEMOGLOBIN; Value: 29.6; Range: 27.0-33.0; Units: pg; Status: F Test: MEAN CORPUSCULAR HGB CONC; Value: 35.2; Range: 32.0-36.5; Units: g/dl; Status: F Test: RED CELL DISTRIBUTION WIDTH; Value: 12.8; Range: 11.5-14.5; Units: %; Status: F Test: PLATELET COUNT, AUTOMATED; Value: 415; Range: 150-450; Units: k/mm3; Status: F Test: NEUTROPHILS %; Value: 85.0; Range: 36.0-66.0; Abnormal: Above high normal; Units: %; Status: F Test: LYMPH %; Value: 9.5; Range: 24.0-44.0; Abnormal: Below low normal; Units: %; Status: F Test: MONO %; Value: 3.4; Range: 0.0-5.0; Units: %; Status: F Test: EOS %; Value: 1.0; Range: 0.0-3.0; Units: %; Status: F Test: BASO %; Value: 0.4; Range: 0.0-1.0; Units: %; Status: F Test: LARGE UNSTAINED CELL %; Value: 0.8; Range: 0.0-4.0; Units: %; Status: F Test: NEUTROPHILS #; Value: 19.9; Range: 1.8-7.7; Abnormal: Above high normal; Units: K/mm3; Status: F Test: LYMPH #; Value: 2.2; Range: 1.5-6.5; Units: K/mm3; Status: F Test: MONO #; Value: 0.8; Range: 0.0-0.8; Units: K/mm3; Status: F Test: EOS #; Value: 0.2; Range: 0.0-0.50; Units: K/mm3; Status: F Test: BASO #; Value: 0.1; Range: 0.0-0.2; Units: K/mm3; Status: F Test: LARGE UNSTAINED CELL #; Value: 0.2; Range: 0.0-0.4; Units: K/mm3; Status: F Lab Order: Lipase; SPEC'M 07/16/16 12:38 Test: LIPASE; Value: 78; Range: 73-393; Units: U/L; Status: F Lab Order: Liver Profile; SPEC'M 07/16/16 12:38 Test: AST/SGOT; Value: 9; Range: 15-37; Abnormal: Below low normal; Units: U/L; Status: F Test: ALT/SGPT; Value: 23; Range: 12-78; Units: U/L; Status: F Test: ALKALINE PHOSPHATASE; Value: 58; Range: 45-117; Units: U/L; Status: F Test: BILIRUBIN,TOTAL; Value: 0.5; Range: 0.2-1.0; Units: MG/DL; Status: F Test: BILIRUBIN,DIRECT; Value: 0.1; Range: 0.0-0.2; Units: MG/DL; Status: F Test: TOTAL PROTEIN; Value: 6.9; Range: 6.4-8.2; Units: GM/DL; Status: F Test: ALBUMIN; Value: 3.5; Range: 3.2-5.2; Units: GM/DL; Status: F Test: ALBUMIN/GLOBULIN RATIO; Value: 1.03; Range: 1.00-1.93; Status: F Lab Order: HCG,Serum Qualitative; SPEC'M 07/16/16 12:38 Test: HCG, SERUM QUALITATIVE; Value: NEGATIVE; Range: NEGATIVE; Status: F Lab Order: UA; SPEC'M 07/16/16 11:50 Test: APPEARANCE, URINE; Value: CLEAR; Range: CLEAR; Status: F Test: COLOR, URINE; Value: YELLOW; Range: YELLOW; Status: F Test: PH,URINE; Value: 5.0; Range: 5.0-9.0; Units: UNITS; Status: F Test: SPECIFIC GRAVITY URINE AUTO; Value: 1.018; Range: 1.002-1.035; Status: F Test: PROTEIN, URINE AUTO; Value: NEGATIVE; Range: NEGATIVE; Units: mg/dL; Status: F Test: GLUCOSE, URINE (UA) AUTO; Value: 2+; Range: NEGATIVE; Abnormal: Above high normal; Units: mg/dL; Status: F Test: KETONE, URINE AUTO; Value: 1+; Range: NEGATIVE; Abnormal: Above high normal; Units: mg/dL; Status: F Test: UROBILINOGEN, URINE AUTO; Value: 0.2; Range: 0.0-2.0; Units: mg/dL; Status: F Test: BILIRUBIN, URINE AUTO; Value: NEGATIVE; Range: NEGATIVE; Status: F Test: NITRITE, URINE AUTO; Value: NEGATIVE; Range: NEGATIVE; Status: F Test: LEUKOCYTE ESTERASE, URINE AUTO; Value: NEGATIVE; Range: NEGATIVE; Status: F Test: BLOOD, URINE BLOOD; Value: NEGATIVE; Range: NEGATIVE; Status: F Test: WBC, URINE AUTO; Value: 1; Range: 0-3; Units: /HPF; Status: F Test: RBC, URINE AUTO; Value: 1; Range: 0-3; Units: /HPF; Status: F Test: BACTERIA, URINE AUTO; Value: NEGATIVE; Range: NEGATIVE; Status: F Test: SQUAMOUS EPITHELIAL CELL UR AU; Value: 3; Range: 0-6; Units: /HPF; Status: F Test: HYALINE CAST, URINE AUTO; Value: 0; Range: 0-1; Units: /LPF; Status: F Radiology Order: CT ABD & PELVIS: IV Contrast Only Test: CT ABD & PELVIS: IV Contrast Only REASON FOR EXAMINATION: Appendicitis; CT study of the abdomen pelvis with IV but without oral contrast:; ; History: Appendicitis.; ; Comparison CT study is from January 06, 2012.; ; CT contrast dose: 100 mL of Isovue 370 is administered intravenously.; ; CT findings: The lung bases are clear. There is no evidence of pleural; effusion. The liver and the spleen are normal in size and homogeneous in texture; postcontrast. No focal liver lesion is seen. No adrenal lesion is observed.; There is calcific material layering in the dependent portion of gallbladder; consistent with cholelithiasis. Gallbladder wall is not visibly thickened.; Common bile duct does not appear to be dilated. Pancreas is unremarkable. The; kidneys enhance symmetrically are morphologically intact. No uterine abnormality; is seen. No ovarian mass lesion is seen. No free fluid is noted.; ; Urinary bladder is unremarkable. Small and large intestinal bowel loops are; normal in the abdomen and pelvis. There are some dorsal fibrotic changes in the; extra spinal soft tissues and a right-sided L5 laminectomy defect is seen. Also; noted is a right-sided pars defect at L5.; ; The appendix is abnormal. It shows mural thickening, periappendiceal; inflammation, and enhancement and some slight fluid thickening the pericolic; gutter. It is posterior to the cecum rising along the lateral aspect of the; pericolic gutter terminating just below the tip of the liver. No abscess or free; air is seen.; ; Impression:; ; CT findings indicative of with acute appendicitis retrocecal appendix. No; evidence of abscess or free air.; ; Also noted is cholelithiasis. Postoperative changes are seen in the dorsal; lumbar spine extra spinal soft tissues. A right L5 laminectomy is performed.; Right-sided pars defect at L5.; ; ; Signed by; Willi Mcdowell MD 07/16/2016 02:50 P; Outcome: 07/16 14:33 Decision to Hospitalize by Provider. ar2 20:01 Discharge Assessment: Patient awake, alert and oriented x 3. No cognitive and/or [facility] functional deficits noted. Patient verbalized understanding of disposition instructions. patient administered narcotics - yes. Patient was admitted to the hospital or transferred to another facility. The following High Risk Discharge criteria are identified: None. Admitted to OR. Condition: unchanged. CT Study completed. Property :Personal belongings accompany Pt. 20:06 Patient left the ED. [facility] Signatures: Dispatcher [employer] EDMS Adelina España, Humanities Instructor Unit deg Luis Parrish RN RN jmk Scott, Debra, RN RN [facility] Roro Taylor, Reg Reg gb Cinthya Reeder, Reg Reg lg Reinaldo Flores, PA-C PA-C ar2 Tonya Marrero, CLINICAL OUTCOMES MANAGER CLINICAL OUTCOMES MANAGER ar3 Luci Hale, CLINICAL OUTCOMES MANAGER CLINICAL OUTCOMES MANAGER Reji Anaya jml1 Paty Eubanks,SENTHIL NDIAYE js13 Elizabeth Robertson RN RN [facility] Hitesh Knight, CLINICAL OUTCOMES MANAGER CLINICAL OUTCOMES MANAGER jrd Chart Complete MTDD
== END 2016-07-17 10:58 | disposition home or self-care (01) ==
LOC: M ED 11:24 → M SDC 15:30 → M PED 22:00 → M SDC 07-17 10:58
PROVIDERS: ATTEND Surgery
DX: K35.80 Unspecified acute appendicitis (principal); F17.290 Nicotine dependence, other tobacco product, uncomplicated; I10 Essential (primary) hypertension; E10.9 Type 1 diabetes mellitus without complications; E66.9 Obesity, unspecified; G47.9 Sleep disorder, unspecified; Z79.899 Other long term (current) drug therapy; Z79.4 Long term (current) use of insulin
CPT/HCPCS: 44970; 74177; 80048; 80076; 81001; 82150; 83690; 84703; 85025; 87086; 88304; 96365; 96375; 96376; 99285; J0690; J2250; J2405; J2543; J2765; J3010; Q9967

== ENCOUNTER → 2016-07-27 | Outpatient (CLI) | payer OTHER ==
[~2016-07-27] MED LIST changes: +IBUP800T23 PO; +INSUHUMDS SC; +NORC5TAB PO; +SENN1TAB2 PO
[2016-07-27 11:23] LABS: BASO # 0.1 K/mm3 (0.0-0.2); BASO % 0.8 % (0.0-1.0); EOS # 0.2 K/mm3 (0.0-0.50); EOS % 2.2 % (0.0-3.0); LARGE UNSTAINED CELL # 0.1 K/mm3 (0.0-0.4); LARGE UNSTAINED CELL % 1.1 % (0.0-4.0); LYMPH # 3.2 K/mm3 (1.5-6.5); LYMPH % 30.8 % (24.0-44.0); MEAN CORPUSCULAR HEMOGLOBIN 28.8 pg (27.0-33.0); MEAN CORPUSCULAR HGB CONC 33.2 g/dl (32.0-36.5); MEAN CORPUSCULAR VOLUME 86.5 fl (80.0-96.0); MONO # 0.5 K/mm3 (0.0-0.8); MONO % 4.7 % (0.0-5.0); NEUTROPHILS # 6.1 K/mm3 (1.8-7.7); NEUTROPHILS % 60.3 % (36.0-66.0); PLATELET COUNT, AUTOMATED 424 k/mm3 (150-450); RED CELL DISTRIBUTION WIDTH 12.9 % (11.5-14.5); WHITE BLOOD COUNT 10.1 K/mm3 (4.0-10.0)
== END ==
LOC: M LAB 10:53
PROVIDERS: ATTEND Family Medicine Addiction Medicine
DX: D72.829 Elevated white blood cell count, unspecified (principal)

== ENCOUNTER → 2016-09-08 | Outpatient (CLI) | payer OTHER ==
[2016-09-08 19:01] LABS: BASO % 0.5 % (0.0-1.0); EOS # 0.3 K/mm3 (0.0-0.50); EOS % 2.4 % (0.0-3.0); LARGE UNSTAINED CELL # 0.1 K/mm3 (0.0-0.4); LARGE UNSTAINED CELL % 1.1 % (0.0-4.0); LYMPH # 3.2 K/mm3 (1.5-6.5); LYMPH % 28.3 % (24.0-44.0); MEAN CORPUSCULAR HEMOGLOBIN 28.8 pg (27.0-33.0); MEAN CORPUSCULAR HGB CONC 33.4 g/dl (32.0-36.5); MEAN CORPUSCULAR VOLUME 86.3 fl (80.0-96.0); MONO # 0.5 K/mm3 (0.0-0.8); MONO % 4.1 % (0.0-5.0); NEUTROPHILS # 7.1 K/mm3 (1.8-7.7); NEUTROPHILS % 63.6 % (36.0-66.0); PLATELET COUNT, AUTOMATED 353 k/mm3 (150-450); RED CELL DISTRIBUTION WIDTH 12.5 % (11.5-14.5); WHITE BLOOD COUNT 11.2 K/mm3 (4.0-10.0)
[2016-09-08 19:33] LABS: ERYTHROCYTE SEDIMENTATION RATE 5 mm/hr (0-20)
== END ==
LOC: M WUC 09:51
PROVIDERS: ATTEND Family Medicine Addiction Medicine
DX: M79.1 Myalgia (principal); R53.83 Other fatigue; D72.829 Elevated white blood cell count, unspecified

== ENCOUNTER 2016-09-21 20:11 | Emergency (ER) | payer OTHER ==
[~2016-09-21] VITALS: Ht 160 cm; Wt 95.3 kg
[~2016-09-21 20:11] MED LIST changes: +NORC1TAB4 PO; -NORC5TAB PO
[2016-09-21] MEDS ORDERED: LYRI75CA PO (20:23)
[2016-09-21] MEDS ORDERED: PYRI200T5 PO (22:09)
[2016-09-21] MEDS ORDERED: PHENAZOPYRIDINE 100 MG TAB PO ONE (22:15)
[2016-09-21 22:39] VITALS: BP 123/74
== END 2016-09-21 22:40 | disposition home or self-care (01) ==
LOC: M ED 21:28
DX: R30.0 Dysuria (principal); E10.9 Type 1 diabetes mellitus without complications; G89.29 Other chronic pain; M54.5 Low back pain; Z79.899 Other long term (current) drug therapy; Z79.4 Long term (current) use of insulin

== ENCOUNTER → 2016-09-22 | Outpatient (CLI) | payer OTHER ==
[~2016-09-22] MED LIST changes: +LYRI75CA PO; -NORC1TAB4 PO; +NORC5TAB PO; +PYRI200T5 PO
[2016-09-22 18:59] LABS: BLOOD UREA NITROGEN 11 MG/DL (7-18); CREATININE FOR GFR 0.55 MG/DL (0.55-1.02); GLOMERULAR FILTRATION RATE > 60.0 (>60)
== END ==
LOC: M WUC 11:57
PROVIDERS: ATTEND Nurse Practitioner
DX: M51.16 Intervertebral disc disorders with radiculopathy, lumbar region (principal)

== ENCOUNTER → 2016-10-09 | Outpatient (CLI) | payer OTHER ==
[~2016-10-09] MED LIST changes: +CELE20TA PO; +NORC1TAB4 PO; -NORC5TAB PO; +SUCR1SS PO
--- NOTE | 2016-10-11 22:40 | SLEEPHOME ---
DATE OF PROCEDURE: 10/09/2016 ORDERED BY: Sheeba Harrison Diagnostic home sleep testing was performed for evaluation of sleep apnea syndrome symptoms in this patient with a history of excessive somnolence. For testing, a NOX-T3 respiratory monitoring device was used. Continuous record was made of pulse, oxygen saturation, air flow, chest and abdominal strain and body position. 4 hours and 55 minutes of data were reviewed, 4 hours and 55 minutes were marked as time in bed. During the interval marked time in bed, there were 26 respiratory events identified of 10 seconds in duration or greater. The events were primarily obstructive, not exclusive to body posture. The patient's baseline pulse rate was 69 beats per minute. Pulse rate ranged 58 to 105. Baseline oxygen saturation 93%, lowest oxygen saturation 90%. Testing was performed in both the supine and nonsupine positions. IMPRESSION: Abnormal home sleep testing with repetitive respiratory events and oxygen desaturations to 90% with a respiratory event index of 5.3 is consistent with mild obstructive sleep apnea syndrome. RECOMMENDATION: Interventions to address weight loss and optimize upper airway tone would be reasonable. If the patient's symptoms are significant, referral for formal sleep testing with in laboratory pressure titration is recommended. Copy To: Dr. Zelaya.
== END ==
LOC: M SLEEP HO 13:13
PROVIDERS: ATTEND Nurse Practitioner Adult Health
DX: G47.30 Sleep apnea, unspecified (principal)

== ENCOUNTER 2016-10-14 11:06 | Emergency (ER) | payer OTHER ==
[~2016-10-14] VITALS: Ht 160 cm; Wt 90.7 kg
[~2016-10-14 11:06] MED LIST changes: -CELE20TA PO; -SUCR1SS PO
[2016-10-14 11:07] VITALS: BP_SYST 169
[2016-10-14] MEDS ORDERED: CELE20TA PO (11:28)
[2016-10-14] MEDS ORDERED: NS 1,000 ML IV ONE (13:30)
[2016-10-14 14:09] LABS: BASO # 0.1 K/mm3 (0.0-0.2); BASO % 0.9 % (0.0-1.0); EOS # 0.4 K/mm3 (0.0-0.50); EOS % 3.5 % (0.0-3.0); LARGE UNSTAINED CELL # 0.1 K/mm3 (0.0-0.4); LYMPH # 3.5 K/mm3 (1.5-6.5); LYMPH % 30.1 % (24.0-44.0); MEAN CORPUSCULAR HEMOGLOBIN 31.7 pg (27.0-33.0); MEAN CORPUSCULAR VOLUME 85.5 fl (80.0-96.0); MONO # 0.5 K/mm3 (0.0-0.8); MONO % 3.8 % (0.0-5.0); NEUTROPHILS # 7.1 K/mm3 (1.8-7.7); NEUTROPHILS % 60.6 % (36.0-66.0); PLATELET COUNT, AUTOMATED 367 k/mm3 (150-450); RED CELL DISTRIBUTION WIDTH 12.2 % (11.5-14.5); WHITE BLOOD COUNT 11.7 K/mm3 (4.0-10.0)
[2016-10-14 14:29] LABS: CONTROL LINE HCG INT CTR LINE PRESENT
[2016-10-14 14:36] LABS: MEAN CORPUSCULAR HGB CONC 37.1 g/dl (32.0-36.5)
[2016-10-14 14:38] LABS: VENOUS PARTIAL PRESSURE CO2 35.7 mmHg (38.0-50.0); VENOUS TOTAL CO2 20.8 MEQ/L (24.0-28.0)
[2016-10-14 14:39] LABS: VENOUS BASE EXCESS -3.5 (-2.0-2.0); VENOUS O2 SATURATION 95.1 % (60.0-80.0); VENOUS STANDARD HCO3 21.6 MEQ/L
[2016-10-14 14:42] LABS: ALBUMIN/GLOBULIN RATIO 1.18 (1.00-1.93); ALKALINE PHOSPHATASE 64 U/L (45-117); ALT/SGPT 26 U/L (12-78); ANION GAP 7 MEQ/L (8-16); AST/SGOT 13 U/L (15-37); BILIRUBIN,DIRECT < 0.1 MG/DL (0.0-0.2); BILIRUBIN,TOTAL 0.3 MG/DL (0.2-1.0); BLOOD UREA NITROGEN 9 MG/DL (7-18); CALCIUM LEVEL 8.6 MG/DL (8.5-10.1); CARBON DIOXIDE LEVEL 24 MEQ/L (21-32); CHLORIDE LEVEL 105 MEQ/L (98-107); CREATININE FOR GFR 0.73 MG/DL (0.55-1.02); GLOMERULAR FILTRATION RATE > 60.0 (>60); GLUCOSE, FASTING 234 MG/DL (70-105); MAGNESIUM LEVEL 1.9 MG/DL (1.8-2.4); POTASSIUM SERUM 4.3 MEQ/L (3.5-5.1); SODIUM LEVEL 136 MEQ/L (136-145); TOTAL PROTEIN 7.4 GM/DL (6.4-8.2)
[2016-10-14] MEDS ORDERED: SUCRALFATE SUSP 1GM/10ML UD PO ONE (15:15)
[2016-10-14] MEDS ORDERED: SUCR1SS PO (16:52)
[2016-10-14 17:14] VITALS: BP_DIAS 78
== END 2016-10-14 17:15 | disposition home or self-care (01) ==
LOC: M ED 13:03
DX: K29.00 Acute gastritis without bleeding (principal)

== ENCOUNTER → 2016-11-01 | Outpatient (REF) | payer OTHER ==
[~2016-11-01] MED LIST changes: +CELE20TA PO; +SUCR1SS PO
[2016-11-01 19:10] LABS: BASO # 0.1 K/mm3 (0.0-0.2); EOS # 0.3 K/mm3 (0.0-0.50); EOS % 2.8 % (0.0-3.0); LARGE UNSTAINED CELL # 0.1 K/mm3 (0.0-0.4); LARGE UNSTAINED CELL % 1.5 % (0.0-4.0); LYMPH % 31.5 % (24.0-44.0); MEAN CORPUSCULAR HEMOGLOBIN 30.6 pg (27.0-33.0); MEAN CORPUSCULAR HGB CONC 34.2 g/dl (32.0-36.5); MEAN CORPUSCULAR VOLUME 89.4 fl (80.0-96.0); MONO # 0.5 K/mm3 (0.0-0.8); MONO % 4.9 % (0.0-5.0); NEUTROPHILS # 5.5 K/mm3 (1.8-7.7); NEUTROPHILS % 58.3 % (36.0-66.0); PLATELET COUNT, AUTOMATED 327 k/mm3 (150-450); RED CELL DISTRIBUTION WIDTH 12.4 % (11.5-14.5); WHITE BLOOD COUNT 9.4 K/mm3 (4.0-10.0)
== END ==
LOC: M LAB REF 16:25
PROVIDERS: ATTEND Family Medicine Addiction Medicine
DX: D72.829 Elevated white blood cell count, unspecified (principal)

== ENCOUNTER → 2016-11-09 | Outpatient (REF) | payer OTHER ==
[2016-11-09 19:34] LABS: FREE T4 1.18 NG/DL (0.76-1.46)
== END ==
LOC: M LAB REF 16:20
PROVIDERS: ATTEND Family Medicine Addiction Medicine
DX: M79.1 Myalgia (principal); R53.83 Other fatigue

== ENCOUNTER → 2016-11-13 | Outpatient (CLI) | payer OTHER ==
--- NOTE | 2016-11-13 08:47 | REP ---
Clinical: Right upper quadrant abdominal pain. Technique: Arboleda scale ultrasound using curved array transducer. Findings: The liver is diffusely increased in echogenicity suggesting fatty infiltration. The liver and pancreas are otherwise normal in contour, size, and pancreatic echogenicity without focal hepatic or pancreatic lesions identified. The gallbladder is normal without gallstones, wall thickening or pericholecystic fluid. No biliary ductal dilatation is appreciated, and the common bile duct measures 4.6 mm diameter. The right kidney is normal in reniform shape without hydronephrosis and measures 11.4 x 6.1 x 4.9 cm. No ascites. Visualized portions of the abdominal aorta normal. Impression: 1. Hepatosteatosis. 2. Otherwise normal right upper quadrant ultrasound. Signed by Foster Boles MD 11/13/2016 08:38 A
== END ==
LOC: M RAD 07:56
PROVIDERS: ATTEND Surgery
DX: R10.9 Unspecified abdominal pain (principal)

== ENCOUNTER → 2016-11-21 | Outpatient (REF) ==
--- NOTE | 2016-11-21 22:31 | REP ---
Clinical: Pain and disability. Technique: AP, lateral, coned-down views of the lumbosacral spine. Findings: Alignment and lordosis maintained. No acute fracture or dislocation. Moderate endplate sclerosis and disc space narrowing at the L5-S1 level is noted. Remainder examination appears relatively normal by radiographic evaluation. Impression: Disc space narrowing at the L5-S1 level. Signed by Foster Boles MD 11/21/2016 10:22 P
== END ==
LOC: M SMT 12:59
PROVIDERS: ATTEND Internal Medicine
DX: M54.5 Low back pain (principal)

== ENCOUNTER → 2017-01-16 | Outpatient (CLI) | payer OTHER ==
[~2017-01-16] VITALS: Ht 170.2 cm; Wt 113.4 kg
[~2017-01-16] MED LIST changes: +IBUP1TAB7 PO; -IBUP800T23 PO; +INSUDET SC; +LIDOCAINE 2% INJ 100 MG/5 ML SDV (FOR ANES.) As Ordered ONE; +NS 500 ML IV SCH; +OMEP20CA3 PO; +PROPOFOL 200 MG/20 ML VIAL As Ordered ONE; +PYRI1TAB5 PO; -PYRI200T5 PO; +REGL10TA6 PO; +VITA-110 PO; +VITA10002 PO; +fentaNYL 100 MCG/2 ML INJECTION (J3010) As Ordered ONE
--- NOTE | 2017-01-16 08:25 | ROOR ---
Patient Name: Krystin Hollingsworth Procedure Date: 01/16/2017 7:59 AM Date of : 1990 Age: 26 Room: [facility] Gender: Female Note Status: Finalized Procedure: Colonoscopy Indications: Clinically significant diarrhea of unexplained origin Providers: Gianluca Waite DO Referring MD: Cristóbal TELLEZ MD Requesting Provider: Medicines: Propofol per Anesthesia Complications: No immediate complications. Procedure: Pre-Anesthesia Assessment: - Prior to the procedure, a History and Physical was performed, and patient medications and allergies were reviewed. The patient is competent. The risks and benefits of the procedure and the sedation options and risks were discussed with the patient. All questions were answered and informed consent was obtained. Patient identification and proposed procedure were verified by the physician, the nurse, the anesthesiologist and the orthodontic lab technician in the endoscopy suite. Mental Status Examination: alert and oriented. Airway Examination: normal oropharyngeal airway and neck mobility. Respiratory Examination: clear to auscultation. CV Examination: normal. Prophylactic Antibiotics: The patient does not require prophylactic antibiotics. Prior Anticoagulants: The patient has taken no previous anticoagulant or antiplatelet agents. ASA Grade Assessment: II - A patient with mild systemic disease. After reviewing the risks and benefits, the patient was deemed in satisfactory condition to undergo the procedure. The anesthesia plan was to use monitored anesthesia care (MAC). Immediately prior to administration of medications, the patient was re-assessed for adequacy to receive sedatives. The heart rate, respiratory rate, oxygen saturations, blood pressure, adequacy of pulmonary ventilation, and response to care were monitored throughout the procedure. The physical status of the patient was re-assessed after the procedure. The Colonoscope was introduced through the anus and advanced to the cecum, identified by appendiceal orifice and ileocecal valve. The colonoscopy was performed without difficulty. The patient tolerated the procedure well. Findings: Two hyperplastic polyps were found in the sigmoid colon. The polyps were 2 to 3 mm in size. These polyps were removed with a cold biopsy forceps. Resection and retrieval were complete. The exam was otherwise without abnormality on direct and retroflexion views. Impression: - Two 2 to 3 mm polyps in the sigmoid colon, removed with a cold biopsy forceps. Resected and retrieved. - The examination was otherwise normal on direct and retroflexion views. Recommendation: - Patient has a contact number available for emergencies. The signs and symptoms of potential delayed complications were discussed with the patient. Return to normal activities tomorrow. Written discharge instructions were provided to the patient. - Repeat colonoscopy at age 48 for surveillance based on pathology results. - Return to my office PRN. Gianluca Waite DO 01/16/2017 8:24:39 AM This report has been signed electronically. Number of Addenda: 0 Note Initiated On: 01/16/2017 7:59 AM Estimated Blood Loss: Estimated blood loss: none.
--- NOTE | 2017-01-16 08:28 | ROOR ---
Patient Name: Krystin Hollingsworth Procedure Date: 01/16/2017 7:59 AM Date of : 1990 Age: 26 Room: [facility] Gender: Female Note Status: Finalized Procedure: Upper GI endoscopy Indications: Heartburn Providers: DO Lakesha Grant MD: Cristóbal TELLEZ MD Requesting Provider: Medicines: Propofol per Anesthesia Complications: No immediate complications. Procedure: Pre-Anesthesia Assessment: - Prior to the procedure, a History and Physical was performed, and patient medications and allergies were reviewed. The patient is competent. The risks and benefits of the procedure and the sedation options and risks were discussed with the patient. All questions were answered and informed consent was obtained. Patient identification and proposed procedure were verified by the physician, the nurse, the anesthesiologist and the lab support technician in the endoscopy suite. Mental Status Examination: alert and oriented. Airway Examination: normal oropharyngeal airway and neck mobility. Respiratory Examination: clear to auscultation. CV Examination: normal. Prophylactic Antibiotics: The patient does not require prophylactic antibiotics. Prior Anticoagulants: The patient has taken no previous anticoagulant or antiplatelet agents. ASA Grade Assessment: II - A patient with mild systemic disease. After reviewing the risks and benefits, the patient was deemed in satisfactory condition to undergo the procedure. The anesthesia plan was to use monitored anesthesia care (MAC). Immediately prior to administration of medications, the patient was re-assessed for adequacy to receive sedatives. The heart rate, respiratory rate, oxygen saturations, blood pressure, adequacy of pulmonary ventilation, and response to care were monitored throughout the procedure. The physical status of the patient was re-assessed after the procedure. The Endoscope was introduced through the mouth, and advanced to the second part of duodenum. The upper GI endoscopy was accomplished without difficulty. The patient tolerated the procedure well. Findings: Diffuse mild inflammation characterized by erythema and granularity was found in the entire examined stomach. Biopsies were taken with a cold forceps for Helicobacter pylori testing. The exam was otherwise without abnormality. Impression: - Gastritis. Biopsied. - The examination was otherwise normal. Recommendation: - Patient has a contact number available for emergencies. The signs and symptoms of potential delayed complications were discussed with the patient. Return to normal activities tomorrow. Written discharge instructions were provided to the patient. - Telephone my office for pathology results in 1 week. Gianluca Waite DO 01/16/2017 8:27:55 AM This report has been signed electronically. Number of Addenda: 0 Note Initiated On: 01/16/2017 7:59 AM Estimated Blood Loss: Estimated blood loss was minimal.
[2017-01-16 08:40] VITALS: BP 149/86
== END | disposition home or self-care (01) ==
LOC: M OPP 07:04
PROVIDERS: ATTEND Surgery
DX: K63.5 Polyp of colon (principal); K21.9 Gastro-esophageal reflux disease without esophagitis; K29.70 Gastritis, unspecified, without bleeding; E11.9 Type 2 diabetes mellitus without complications; G47.30 Sleep apnea, unspecified; M79.7 Fibromyalgia; F41.9 Anxiety disorder, unspecified; F33.9 Major depressive disorder, recurrent, unspecified; Z86.14 Personal history of Methicillin resistant Staphylococcus aureus infection; F17.210 Nicotine dependence, cigarettes, uncomplicated; Z79.899 Other long term (current) drug therapy; Z79.4 Long term (current) use of insulin; Z88.8 Allergy status to other drugs, medicaments and biological substances

== ENCOUNTER → 2017-08-15 | Outpatient (REF) | payer OTHER ==
[2017-08-16 10:37] LABS: HEPATITIS C VIRUS ABY INDEX 0.1 INDEX (<0.8)
== END ==
LOC: M LAB REF 17:26
DX: Z11.59 Encounter for screening for other viral diseases (principal)
CPT/HCPCS: 86803

== ENCOUNTER 2017-08-27 07:09 | Day surgery (SDC) | payer OTHER ==
[~2017-08-27 07:09] MED LIST changes: -/INSULEV SQ; -/LOR25TA OR; +ACETAMINOPHEN 325 MG TAB PO; -BACT800T OR; -BACTROBAN; -CELE20TA PO; -IBUP1TAB7 PO; -INSUDET SC; -INSUHUMDS SC; -LIDOCAINE 2% INJ 100 MG/5 ML SDV (FOR ANES.) As Ordered ONE; -LYRI75CA PO; -NORC1TAB4 PO; -NS 500 ML IV SCH; -OMEP20CA3 PO; +PHENYLEPHRINE HCL 10 % OPHTH. SOL 5ML OS; +PROPARACAINE 0.5% OPHTH SOL 15ML OS; -PROPOFOL 200 MG/20 ML VIAL As Ordered ONE; -PYRI1TAB5 PO; -REGL10TA6 PO; -SENN1TAB2 PO; -SUCR1SS PO; -VITA-110 PO; -VITA10002 PO; -fentaNYL 100 MCG/2 ML INJECTION (J3010) As Ordered ONE; -novolog
[2017-08-27] MEDS ORDERED: KETOROLAC 0.5% OPHTH SOLN OS (07:30)
[2017-08-27] MEDS ORDERED: TRIMETHOBENZAMIDE 300 MG CAP PO (07:30)
[2017-08-27] MEDS ORDERED: MIDAZOLAM INJ 2 MG/2 ML VIAL (J2250) As Ordered (07:32)
[2017-08-27] MEDS ORDERED: fentaNYL 100 MCG/2 ML INJECTION (J3010) As Ordered (07:32)
[2017-08-27] MEDS: CYCLOPENTOLATE 2% OPHTH SOLN 2ML BTL OS (07:35)
[2017-08-27] MEDS: PHENYLEPHRINE 2.5% OPHTH SOL 2ML OS (07:40)
[2017-08-27] MEDS: TROPICAMIDE 1% OPHTH SOLN 2ML OS (07:45)
[2017-08-27 07:48] LABS: CONTROL LINE UCG INT CTR LINE PRESENT; URINE PREG TEST NEGATIVE (NEGATIVE)
[2017-08-27] MEDS: OFLOXACIN 0.3 % (OCUFLOX) OPTH SOL 5ML OS (07:50)
[2017-08-27] MEDS: LIDOCAINE 3.5 % 1ML OPHTH TOPICAL GEL OU (07:55)
[2017-08-27] MEDS: LIDOCAINE 2% W/EPIN INJ 20ML **PRES FREE As Ordered (08:05)
[2017-08-27] MEDS: LIDOCAINE 1% SDV 5 ML VIAL As Ordered (08:05)
[2017-08-27 08:07] LABS: BEDSIDE GLUCOSE 190 MG/DL (70-105)
[2017-08-27] MEDS: POVIDONE-IODINE 5% OPHTH PREP SOL 30ML As Ordered (08:59)
[2017-08-27] MEDS: HEALON DUET (HEALON 10MG/ML 0.55ML & HEALON ENDOCOAT 30MG/ML 0.85ML) As Ordered (09:04)
[2017-08-27] MEDS: BSS with VANC/TOB/EPI for EYE CASES IR (09:04)
[2017-08-27] MEDS: TRIAMCINOLONE PRES FR 40 MG/ML 1ML(TRIESENCE)(OR EYE ONLY)(J3300 PER 1MG) As Ordered (09:04)
[2017-08-27] MEDS: MOXIFLOXACIN IN BSS 0.25MG/0.25ML INTRACAMERAL INJ (OR EYE ONLY)(J2280) As Ordered (09:04)
[2017-08-27] MEDS: AcetaZOLAMIDE 500 MG ER CAP PO (09:28)
== END 2017-08-27 09:37 | disposition home or self-care (01) ==
LOC: M SDC 07:09
DX: H26.9 Unspecified cataract (principal); E10.9 Type 1 diabetes mellitus without complications; K21.9 Gastro-esophageal reflux disease without esophagitis; Z86.14 Personal history of Methicillin resistant Staphylococcus aureus infection; M79.7 Fibromyalgia; L71.9 Rosacea, unspecified; F41.9 Anxiety disorder, unspecified; F32.9 Major depressive disorder, single episode, unspecified; G47.30 Sleep apnea, unspecified; E28.2 Polycystic ovarian syndrome; E55.9 Vitamin D deficiency, unspecified; L81.8 Other specified disorders of pigmentation; F17.210 Nicotine dependence, cigarettes, uncomplicated; Z88.8 Allergy status to other drugs, medicaments and biological substances; Z79.899 Other long term (current) drug therapy
CPT/HCPCS: 66984

== ENCOUNTER → 2017-11-04 | Outpatient (CLI) | payer OTHER | LOC: M WHC 11:00 | DX: N92.1 Excessive and frequent menstruation with irregular cycle (principal); E28.2 Polycystic ovarian syndrome | CPT/HCPCS: 76830 ==

== ENCOUNTER → 2017-11-29 | Outpatient (REF) | payer OTHER ==
[2017-11-29 17:03] LABS: ALBUMIN 4.2 GM/DL (3.2-5.2); ALBUMIN/GLOBULIN RATIO 1.02 (1.00-1.93); ALKALINE PHOSPHATASE 78 U/L (45-117); ALT/SGPT 23 U/L (12-78); ANION GAP 6 MEQ/L (8-16); AST/SGOT 10 U/L (7-37); BILIRUBIN,TOTAL 0.4 MG/DL (0.2-1.0); BLOOD UREA NITROGEN 12 MG/DL (7-18); C REACTIVE PROTEIN QUANTITATIV 0.48 MG/DL (0.00-0.30); CALCIUM LEVEL 9.1 MG/DL (8.5-10.1); CARBON DIOXIDE LEVEL 26 MEQ/L (21-32); CHLORIDE LEVEL 105 MEQ/L (98-107); CREATININE FOR GFR 0.66 MG/DL (0.55-1.30); GLOMERULAR FILTRATION RATE > 60.0 (>60); GLUCOSE, FASTING 211 MG/DL (70-100); POTASSIUM SERUM 4.1 MEQ/L (3.5-5.1); SODIUM LEVEL 137 MEQ/L (136-145); TOTAL PROTEIN 8.3 GM/DL (6.4-8.2)
[2017-11-29 18:22] LABS: ERYTHROCYTE SEDIMENTATION RATE 3 mm/hr (0-20)
[2017-11-29 18:43] LABS: ESTIMATED AVERAGE GLUCOSE 203 MG/DL (60-110); HEMOGLOBIN A1c 8.7 %
[2017-11-29 18:44] LABS: MALB URINE SIEMENS 26.2 MG/L; MAU/CREAT RATIO 25.9 MCG/MG (0.0-30.0)
== END ==
LOC: M LAB REF 16:24
DX: E10.9 Type 1 diabetes mellitus without complications (principal)

== ENCOUNTER → 2018-01-03 | Outpatient (REF) | payer OTHER, MEDICAID ==
[2018-01-03 17:42] LABS: HEMATOCRIT 43.3 % (36.0-47.0); HEMOGLOBIN 14.8 g/dl (12.0-15.5); MEAN CORPUSCULAR HEMOGLOBIN 29.4 pg (27.0-33.0); MEAN CORPUSCULAR HGB CONC 34.2 g/dl (32.0-36.5); MEAN CORPUSCULAR VOLUME 85.9 fl (80.0-96.0); PLATELET COUNT, AUTOMATED 385 10^3/uL (150-450); RED BLOOD COUNT 5.04 10^6/uL (4.00-5.40); RED CELL DISTRIBUTION WIDTH 12.3 % (11.5-14.5); WHITE BLOOD COUNT 13.5 10^3/uL (4.0-10.0)
[2018-01-03 17:44] LABS: ADD MANUAL DIFFER YES; DIFF SLIDE NUMBER 319; POSITIVE DIFF POS FLAG
[2018-01-03 18:19] LABS: APPEARANCE, URINE TURBID (CLEAR); BACTERIA, URINE AUTO 2+ (NEGATIVE); BILIRUBIN, URINE AUTO NEGATIVE (NEGATIVE); BLOOD, URINE BLOOD NEGATIVE (NEGATIVE); CALCIUM OXALATE CRYSTALS SMALL; COLOR, URINE YELLOW (YELLOW); GLUCOSE, URINE (UA) AUTO 3+ mg/dL (NEGATIVE); KETONE, URINE AUTO TRACE mg/dL (NEGATIVE); LEUKOCYTE ESTERASE, URINE AUTO NEGATIVE (NEGATIVE); NITRITE, URINE AUTO NEGATIVE (NEGATIVE); PROTEIN, URINE AUTO NEGATIVE (NEGATIVE); RBC, URINE AUTO 3 /HPF (0-3); SPECIFIC GRAVITY URINE AUTO 1.025 (1.002-1.035); SQUAMOUS EPITHELIAL CELL UR AU 5 /HPF (0-6); WBC, URINE AUTO 9 /HPF (0-3)
[2018-01-03 20:02] LABS: ATYPICAL LYMPH 4 % (0-5); EOSINOPHILS 1 % (0-5); LYMPHOCYTES 28 % (16-52); MONOCYTES 6 % (0-8); NEUTROPHILS 61 % (35-75)
[2018-01-03 20:03] LABS: PLATELET ESTIMATE NORMAL (NORMAL); SMUDGE CELLS 1+
== END ==
LOC: M LAB REF 16:47
DX: D72.829 Elevated white blood cell count, unspecified (principal)

== ENCOUNTER → 2018-01-07 | Outpatient (REF) | payer OTHER | LOC: M SFHCWAGY 15:57 | DX: Z12.4 Encounter for screening for malignant neoplasm of cervix (principal) ==

== ENCOUNTER → 2018-01-08 | Outpatient (REF) | payer OTHER ==
[2018-01-08 18:32] LABS: APPEARANCE, URINE CLEAR (CLEAR); BACTERIA, URINE AUTO 2+ (NEGATIVE); BILIRUBIN, URINE AUTO NEGATIVE (NEGATIVE); BLOOD, URINE BLOOD NEGATIVE (NEGATIVE); COLOR, URINE STRAW (YELLOW); GLUCOSE, URINE (UA) AUTO 3+ mg/dL (NEGATIVE); KETONE, URINE AUTO TRACE mg/dL (NEGATIVE); LEUKOCYTE ESTERASE, URINE AUTO TRACE (NEGATIVE); NITRITE, URINE AUTO NEGATIVE (NEGATIVE); PROTEIN, URINE AUTO NEGATIVE (NEGATIVE); RBC, URINE AUTO 2 /HPF (0-3); SPECIFIC GRAVITY URINE AUTO 1.002 (1.002-1.035); SQUAMOUS EPITHELIAL CELL UR AU 1 /HPF (0-6); UROBILINOGEN, URINE AUTO 0.2 mg/dL (0.0-2.0); WBC, URINE AUTO 7 /HPF (0-3)
== END ==
LOC: M LAB REF 17:23
DX: R32 Unspecified urinary incontinence (principal)
CPT/HCPCS: 81001

== ENCOUNTER → 2018-03-04 | Outpatient (REF) | payer OTHER ==
[2018-03-04 21:11] LABS: SLIDE REVIEW Report; SOURCE PERIPHERAL SMEAR
== END ==
LOC: M LAB REF 17:22
DX: D72.829 Elevated white blood cell count, unspecified (principal)

== ENCOUNTER → 2018-04-16 | Outpatient (REF) | payer OTHER ==
[2018-04-16 18:41] LABS: ALBUMIN 3.9 GM/DL (3.2-5.2); ALBUMIN/GLOBULIN RATIO 0.98 (1.00-1.93); ALKALINE PHOSPHATASE 77 U/L (45-117); ALT/SGPT 25 U/L (12-78); ANION GAP 8 MEQ/L (8-16); AST/SGOT 9 U/L (7-37); BILIRUBIN,TOTAL 0.3 MG/DL (0.2-1.0); BLOOD UREA NITROGEN 11 MG/DL (7-18); CALCIUM LEVEL 9.2 MG/DL (8.5-10.1); CARBON DIOXIDE LEVEL 26 MEQ/L (21-32); CHLORIDE LEVEL 103 MEQ/L (98-107); CHOLESTEROL LEVEL 201 MG/DL (<200); CREATININE FOR GFR 0.58 MG/DL (0.55-1.30); GLOMERULAR FILTRATION RATE > 60.0 (>60); GLUCOSE, FASTING 80 MG/DL (70-100); HDL CHOLESTEROL 26 MG/DL (>40); NON-HDL-C 175 MG/DL; POTASSIUM SERUM 4.1 MEQ/L (3.5-5.1); SODIUM LEVEL 137 MEQ/L (136-145); TOTAL PROTEIN 7.9 GM/DL (6.4-8.2); TRIGLYCERIDES LEVEL 447 MG/DL (<150)
[2018-04-16 18:54] LABS: ESTIMATED AVERAGE GLUCOSE 189 MG/DL (60-110); HEMOGLOBIN A1c 8.2 %
[2018-04-16 18:59] LABS: TOTAL 25(OH) VITAMIN D 11.1 NG/ML (30.0-100.0)
== END ==
LOC: M LAB REF 17:11
DX: E10.9 Type 1 diabetes mellitus without complications (principal); R53.83 Other fatigue
CPT/HCPCS: 84443

== ENCOUNTER → 2018-04-16 | Outpatient (REF) | payer OTHER ==
[2018-04-16 18:42] LABS: CREATININE, URINE 83.9 MG/DL; MALB URINE SIEMENS 14.2 MG/L; MAU/CREAT RATIO 16.9 MCG/MG (0.0-30.0)
== END ==
LOC: M LAB REF 16:44
DX: E10.9 Type 1 diabetes mellitus without complications (principal)
CPT/HCPCS: 82043

== ENCOUNTER → 2018-06-10 | Outpatient (REF) | payer OTHER ==
[~2018-06-10] MED LIST changes: +/INSULEV SQ; +/LOR25TA OR; -ACETAMINOPHEN 325 MG TAB PO; +ADME100I SC; +BACT800T OR; +BACTROBAN; +CELE20TA PO; +DULO30CA PO; +IBUP1TAB7 PO; +INSUDET SC; +INSUHUMDS SC; +LYRI75CA PO; +NORC1TAB4 PO; +OMEP20CA3 PO; +OXYB5TAB10 PO; -PHENYLEPHRINE HCL 10 % OPHTH. SOL 5ML OS; -PROPARACAINE 0.5% OPHTH SOL 15ML OS; +PYRI1TAB5 PO; +REGL10TA6 PO; +SENN1TAB2 PO; +SUCR1SS PO; +VITA-110 PO; +VITA10002 PO; +novolog
[2018-06-10 13:37] LABS: BASO # 0.1 10^3/uL (0.0-0.2); BASO % 0.8 % (0.0-1.0); EOS # 0.3 10^3/uL (0.0-0.50); EOS % 2.9 % (0.0-3.0); HEMATOCRIT 44.3 % (36.0-47.0); HEMOGLOBIN 15.2 g/dl (12.0-15.5); LYMPH # 3.7 10^3/uL (1.5-4.5); LYMPH % 35.1 % (24.0-44.0); MEAN CORPUSCULAR HEMOGLOBIN 29.1 pg (27.0-33.0); MEAN CORPUSCULAR HGB CONC 34.3 g/dl (32.0-36.5); MEAN CORPUSCULAR VOLUME 84.7 fl (80.0-96.0); MONO # 0.6 10^3/uL (0.0-0.8); MONO % 5.7 % (0.0-5.0); NEUTROPHILS # 5.8 10^3/uL (1.8-7.7); NEUTROPHILS % 54.8 % (36.0-66.0); PLATELET COUNT, AUTOMATED 389 10^3/uL (150-450); RED BLOOD COUNT 5.23 10^6/uL (4.00-5.40); WHITE BLOOD COUNT 10.6 10^3/uL (4.0-10.0)
[2018-06-10 14:08] LABS: ALBUMIN 4.3 GM/DL (3.2-5.2); ALT/SGPT 26 U/L (12-78); BILIRUBIN,TOTAL 0.3 MG/DL (0.2-1.0); BLOOD UREA NITROGEN 11 MG/DL (7-18); CALCIUM LEVEL 9.5 MG/DL (8.5-10.1); CARBON DIOXIDE LEVEL 26 MEQ/L (21-32); CHLORIDE LEVEL 102 MEQ/L (98-107); CHOLESTEROL LEVEL 184 MG/DL (<200); CHOLESTEROL RISK RATIO 7.076 (<5); CREATININE FOR GFR 0.68 MG/DL (0.55-1.30); GLOMERULAR FILTRATION RATE > 60.0 (>60); GLUCOSE, FASTING 171 MG/DL (70-100); HDL CHOLESTEROL 26 MG/DL (>40); NON-HDL-C 158 MG/DL; POTASSIUM SERUM 4.4 MEQ/L (3.5-5.1); RHEUMATOID FACTOR QUANT < 10.0 IU/ML (<15.0); SODIUM LEVEL 137 MEQ/L (136-145); TOTAL 25(OH) VITAMIN D 12.7 NG/ML (30.0-100.0); TOTAL PROTEIN 7.7 GM/DL (6.4-8.2); TRIGLYCERIDES LEVEL 401 MG/DL (<150); URIC ACID 3.3 MG/DL (2.6-6.0)
[2018-06-10 14:09] LABS: MAU/CREAT RATIO 27.6 MCG/MG (0.0-30.0)
[2018-06-11 14:14] LABS: ANTINUCLEAR ANTIBODIES DIRECT Negative (Negative)
== END ==
LOC: M LAB REF 12:41
PROVIDERS: ATTEND Nurse Practitioner Family
DX: E10.9 Type 1 diabetes mellitus without complications (principal)

== ENCOUNTER → 2018-09-04 | Outpatient (REF) | payer OTHER ==
[2018-09-04 13:01] LABS: INFLUENZA A AMPLIFICATION NEGATIVE (NEGATIVE); INFLUENZA B AMPLIFICATION NEGATIVE (NEGATIVE)
== END ==
LOC: M LAB REF 12:10
PROVIDERS: ATTEND Physician Assistant
DX: J11.1 Influenza due to unidentified influenza virus with other respiratory manifestations (principal)

== ENCOUNTER → 2018-10-29 | Outpatient (CLI) | payer OTHER ==
[~2018-10-29] MED LIST changes: -/INSULEV SQ; -DULO30CA PO; +DULO30CA9 PO; +LEVE0.01 SQ; -NORC1TAB4 PO; +NORC1TAB7 PO; -SENN1TAB2 PO; +SENN1TAB40 PO
--- NOTE | 2018-10-30 03:32 | REP ---
Clinical: Contusion. Technique: AP, lateral, bilateral oblique views of the right foot. Findings: Generalized age-related changes are appreciated. There is no evidence for acute fracture dislocation. Skeletal structures, joint spaces, and surrounding soft tissues appear normal. No subcutaneous emphysema or radiodense foreign body. Impression: No obvious acute fracture or dislocation. Electronically Signed by Foster Boles MD 10/30/2018 03:24 A
== END ==
LOC: M WUC 09:05
PROVIDERS: ATTEND Physician Assistant
DX: S90.31XA Contusion of right foot, initial encounter (principal); X58.XXXA Exposure to other specified factors, initial encounter; Y92.89 Other specified places as the place of occurrence of the external cause

== ENCOUNTER → 2018-11-04 | Outpatient (REF) | payer OTHER ==
[2018-11-04 12:14] LABS: THYROID STIMULATING HORMONE 1.53 uIU/ML (0.358-3.740)
[2018-11-06 00:06] LABS: ANA (HEP2) Negative (.); SSA SJOGRENS A <0.2 AI (0.0-0.9); SSB SJOGRENS B <0.2 AI (0.0-0.9)
== END ==
LOC: M SFHCPLAZ 09:46
PROVIDERS: ATTEND Internal Medicine Rheumatology
DX: M25.50 Pain in unspecified joint (principal); M79.10 Myalgia, unspecified site

== ENCOUNTER → 2018-11-07 | Outpatient (REF) | payer OTHER ==
[2018-11-07 13:51] LABS: BASO # 0.1 10^3/uL (0.0-0.2); BASO % 0.8 % (0.0-1.0); EOS # 0.3 10^3/uL (0.0-0.50); EOS % 2.6 % (0.0-3.0); HEMOGLOBIN 15.6 g/dl (12.0-15.5); LYMPH # 3.8 10^3/uL (1.5-4.5); LYMPH % 33.9 % (24.0-44.0); MEAN CORPUSCULAR HEMOGLOBIN 29.1 pg (27.0-33.0); MEAN CORPUSCULAR HGB CONC 33.2 g/dl (32.0-36.5); MEAN CORPUSCULAR VOLUME 87.5 fl (80.0-96.0); MONO # 0.6 10^3/uL (0.0-0.8); MONO % 5.3 % (0.0-5.0); NEUTROPHILS # 6.4 10^3/uL (1.8-7.7); NEUTROPHILS % 56.5 % (36.0-66.0); PLATELET COUNT, AUTOMATED 367 10^3/uL (150-450); RED BLOOD COUNT 5.37 10^6/uL (4.00-5.40); WHITE BLOOD COUNT 11.3 10^3/uL (4.0-10.0)
[2018-11-07 14:19] LABS: APPEARANCE, URINE CLEAR (CLEAR); BACTERIA, URINE AUTO 1+ (NEGATIVE); BILIRUBIN, URINE AUTO NEGATIVE (NEGATIVE); BLOOD, URINE BLOOD NEGATIVE (NEGATIVE); COLOR, URINE YELLOW (YELLOW); GLUCOSE, URINE (UA) AUTO 1+ mg/dL (NEGATIVE); KETONE, URINE AUTO NEGATIVE (NEGATIVE); LEUKOCYTE ESTERASE, URINE AUTO TRACE (NEGATIVE); MUCUS, URINE SMALL (NEGATIVE); NITRITE, URINE AUTO NEGATIVE (NEGATIVE); PROTEIN, URINE AUTO NEGATIVE (NEGATIVE); RBC, URINE AUTO 1 /HPF (0-3); SPECIFIC GRAVITY URINE AUTO 1.016 (1.002-1.035); SQUAMOUS EPITHELIAL CELL UR AU 5 /HPF (0-6); UROBILINOGEN, URINE AUTO 0.2 mg/dL (0.0-2.0); WBC, URINE AUTO 3 /HPF (0-3)
[2018-11-07 14:43] LABS: ALBUMIN 4.1 GM/DL (3.2-5.2); ALT/SGPT 28 U/L (12-78); BILIRUBIN,TOTAL 0.5 MG/DL (0.2-1.0); BLOOD UREA NITROGEN 9 MG/DL (7-18); CALCIUM LEVEL 8.9 MG/DL (8.5-10.1); CARBON DIOXIDE LEVEL 26 MEQ/L (21-32); CHLORIDE LEVEL 105 MEQ/L (98-107); CHOLESTEROL LEVEL 137 MG/DL (<200); CHOLESTEROL RISK RATIO 4.566 (<5); CREATININE FOR GFR 0.65 MG/DL (0.55-1.30); FREE T4 1.23 NG/DL (0.76-1.46); GLOMERULAR FILTRATION RATE > 60.0 (>60); GLUCOSE, FASTING 191 MG/DL (70-100); HDL CHOLESTEROL 30 MG/DL (>40); LDL CHOLESTEROL 61 MG/DL (<100); NON-HDL-C 107 MG/DL; POTASSIUM SERUM 4.3 MEQ/L (3.5-5.1); SODIUM LEVEL 137 MEQ/L (136-145); TOTAL PROTEIN 8.3 GM/DL (6.4-8.2); TRIGLYCERIDES LEVEL 232 MG/DL (<150)
[2018-11-07 18:37] LABS: HEMOGLOBIN A1c 8.5 %
[2018-11-08 14:30] LABS: Lyme Disease IgG/IgM Antibodie <0.91 ISR (0.00-0.90); Lyme Disease IgM Ab Quantitati <0.80 index (0.00-0.79)
== END ==
LOC: M LAB REF 13:00
PROVIDERS: ATTEND Family Medicine
DX: Z13.228 Encounter for screening for other metabolic disorders (principal)

== ENCOUNTER → 2019-09-25 | Outpatient (REF) | payer OTHER ==
[~2019-09-25] MED LIST changes: +CYAN100049 PO; +OMEP1CAP73 PO; -OMEP20CA3 PO; +SENN-53 PO; -SENN1TAB40 PO; -VITA10002 PO
[2019-09-25 17:50] LABS: BASO # 0.1 10^3/uL (0.0-0.2); BASO % 0.8 % (0.0-1.0); EOS # 0.3 10^3/uL (0.0-0.5); EOS % 2.7 % (0.0-3.0); HEMOGLOBIN 15.1 g/dl (12.0-15.5); LYMPH # 3.1 10^3/uL (1.5-5.0); LYMPH % 29.4 % (24.0-44.0); MEAN CORPUSCULAR HGB CONC 33.6 g/dl (32.0-36.5); MEAN CORPUSCULAR VOLUME 86.4 fl (80.0-96.0); MONO # 0.5 10^3/uL (0.0-0.8); MONO % 4.4 % (0.0-5.0); NEUTROPHILS # 6.5 10^3/uL (1.5-8.5); NEUTROPHILS % 62.2 % (36.0-66.0); PLATELET COUNT, AUTOMATED 368 10^3/uL (150-450); RED BLOOD COUNT 5.21 10^6/uL (4.00-5.40); WHITE BLOOD COUNT 10.5 10^3/uL (4.0-10.0)
[2019-09-29 00:09] LABS: MUMPS VIRUS IgG ANTIBODY 35.3 AU/mL (Immune >10.9); RUBEOLA IgG ANTIBODY 51.8 AU/mL (Immune >16.4)
== END ==
LOC: M LAB REF 16:30
PROVIDERS: ATTEND Family Medicine
DX: B26.9 Mumps without complication (principal); E10.9 Type 1 diabetes mellitus without complications

== ENCOUNTER → 2020-02-04 | Outpatient (REF) | payer OTHER ==
[2020-03-21 11:32] LABS: ALBUMIN 4.1 GM/DL (3.2-5.2); ALT/SGPT 16 U/L (12-78); BILIRUBIN,TOTAL 0.4 MG/DL (0.2-1.0); BLOOD UREA NITROGEN 10 MG/DL (7-18); CALCIUM LEVEL 9.5 MG/DL (8.5-10.1); CARBON DIOXIDE LEVEL 26 MEQ/L (21-32); CHLORIDE LEVEL 107 MEQ/L (98-107); CHOLESTEROL LEVEL 170 MG/DL (<200); CHOLESTEROL RISK RATIO 5.666 (<5); CREATININE FOR GFR 0.75 MG/DL (0.55-1.30); GLOMERULAR FILTRATION RATE > 60.0 (>60); GLUCOSE, FASTING 98 MG/DL (70-100); HDL CHOLESTEROL 30 MG/DL (>40); HEMOGLOBIN A1c 6.3 %; HEPATITIS B SURFACE ANTIBODY NEGATIVE (POSITIVE); HEPATITIS B SURFACE ANTIGEN NEGATIVE (NEGATIVE); LDL CHOLESTEROL 105 MG/DL (<100); NON-HDL-C 140 MG/DL; POTASSIUM SERUM 4.5 MEQ/L (3.5-5.1); SODIUM LEVEL 139 MEQ/L (136-145); TOTAL PROTEIN 7.8 GM/DL (6.4-8.2); TRIGLYCERIDES LEVEL 174 MG/DL (<150)
== END ==
LOC: M LAB REF 07:45
PROVIDERS: ATTEND Family Medicine Addiction Medicine
DX: Z01.84 Encounter for antibody response examination (principal); E10.9 Type 1 diabetes mellitus without complications

== ENCOUNTER 2020-02-24 06:46 | Emergency (ER) | payer OTHER ==
[~2020-02-24] VITALS: Ht 162.6 cm; Wt 78.1 kg
[2020-02-24 08:11] LABS: BASO # 0.1 10^3/uL (0.0-0.2); BASO % 0.6 % (0.0-1.0); EOS # 0.1 10^3/uL (0.0-0.5); EOS % 0.8 % (0.0-3.0); HEMATOCRIT 42.1 % (36.0-47.0); HEMOGLOBIN 14.2 g/dl (12.0-15.5); LYMPH # 2.5 10^3/uL (1.5-5.0); LYMPH % 14.6 % (24.0-44.0); MEAN CORPUSCULAR HEMOGLOBIN 29.7 pg (27.0-33.0); MEAN CORPUSCULAR HGB CONC 33.7 g/dl (32.0-36.5); MEAN CORPUSCULAR VOLUME 88.1 fl (80.0-96.0); MONO # 0.7 10^3/uL (0.0-0.8); MONO % 3.9 % (0.0-5.0); NEUTROPHILS # 13.6 10^3/uL (1.5-8.5); NEUTROPHILS % 79.6 % (36.0-66.0); PLATELET COUNT, AUTOMATED 375 10^3/uL (150-450); RED BLOOD COUNT 4.78 10^6/uL (4.00-5.40); WHITE BLOOD COUNT 17.1 10^3/uL (4.0-10.0)
--- NOTE | 2020-02-24 08:38 | REPVR ---
PROCEDURE INFORMATION: Exam: CT Head Without Contrast Exam date and time: 02/24/2020 8:29 AM Age: 29 years old Clinical indication: Pain; Headache; Additional info: Syncope, pain to left post occipital TECHNIQUE: Imaging protocol: Computed tomography of the head without contrast. Radiation optimization: All CT scans at this facility use at least one of these dose optimization techniques: automated exposure control; mA and/or kV adjustment per patient size (includes targeted exams where dose is matched to clinical indication); or iterative reconstruction. COMPARISON: CT Head without contrast 03/28/2015 11:08 PM FINDINGS: Brain: There is no acute intracranial hemorrhage. No extra-axial fluid collection. No evidence of acute infarct. Abroleda white differentiation is intact. There is no evidence of mass. There is no mass effect or midline shift. Ventricles: No ventriculomegaly. Bones/joints: No acute fracture. Sinuses: Unremarkable as visualized. No acute sinusitis. Mastoid air cells: No significant mastoid effusion. Soft tissues: Unremarkable as visualized. IMPRESSION: No evidence of acute intracranial abnormality. Electronically signed by: Veda Camarillo On 02/24/2020 08:38:12 AM
[2020-02-24 08:51] LABS: ALBUMIN 3.5 GM/DL (3.2-5.2); ALT/SGPT 13 U/L (12-78); BILIRUBIN,DIRECT < 0.1 MG/DL (0.0-0.2); BILIRUBIN,TOTAL 0.3 MG/DL (0.2-1.0); CK-MB VALUE MASS < 1.0 NG/ML (<3.6); CPK CREATINE PHOSPHOKINASE 51 U/L (26-192); LIPASE 67 U/L (73-393); MB/CK RELATIVE INDEX 1.96 (< OR =4); TOTAL PROTEIN 6.9 GM/DL (6.4-8.2); TROPONIN I < 0.02 NG/ML (< 0.10)
[2020-02-24 09:07] VITALS: BP 126/80
--- NOTE | 2020-03-07 12:44 | ECGEPIP ---
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
== END 2020-02-24 09:18 | disposition home or self-care (01) ==
LOC: M ED 06:46
DX: R55 Syncope and collapse (principal); F17.210 Nicotine dependence, cigarettes, uncomplicated; Z86.32 Personal history of gestational diabetes; Z88.8 Allergy status to other drugs, medicaments and biological substances

== ENCOUNTER → 2020-10-23 | Outpatient (CLI) | payer OTHER ==
[2020-10-23 09:17] LABS: BASO # 0.1 10^3/uL (0.0-0.2); BASO % 0.8 % (0.0-1.0); EOS # 0.4 10^3/uL (0.0-0.5); EOS % 2.9 % (0.0-3.0); HEMOGLOBIN 14.6 g/dl (12.0-15.5); LYMPH # 3.7 10^3/uL (1.5-5.0); LYMPH % 30.6 % (24.0-44.0); MEAN CORPUSCULAR HEMOGLOBIN 29.7 pg (27.0-33.0); MEAN CORPUSCULAR HGB CONC 33.2 g/dl (32.0-36.5); MEAN CORPUSCULAR VOLUME 89.6 fl (80.0-96.0); MONO # 0.6 10^3/uL (0.0-0.8); MONO % 5.2 % (2.0-8.0); NEUTROPHILS # 7.2 10^3/uL (1.5-8.5); PLATELET COUNT, AUTOMATED 329 10^3/uL (150-450); RED BLOOD COUNT 4.91 10^6/uL (4.00-5.40); WHITE BLOOD COUNT 12.1 10^3/uL (4.0-10.0)
[2020-10-23 09:41] LABS: CHOLESTEROL LEVEL 172 MG/DL (<200); CHOLESTEROL RISK RATIO 5.212 (<5); FERRITIN 76 NG/ML (8-252); HDL CHOLESTEROL 33 MG/DL (>40); IRON (FE) 98 UG/DL (50-170); LDL CHOLESTEROL 124 MG/DL (<100); NON-HDL-C 139 MG/DL; TRIGLYCERIDES LEVEL 76 MG/DL (<150)
== END ==
LOC: M LAB 08:11
PROVIDERS: ATTEND Family Medicine Addiction Medicine
DX: E55.9 Vitamin D deficiency, unspecified (principal); L65.9 Nonscarring hair loss, unspecified; E10.9 Type 1 diabetes mellitus without complications

== ENCOUNTER 2021-01-08 12:02 | Inpatient (IN) | payer OTHER ==
[~2021-01-08] VITALS: Ht 162.6 cm; Wt 74.6 kg
[2021-01-08 13:31] LABS: BASO # 0.1 10^3/uL (0.0-0.2); BASO % 0.6 % (0.0-1.0); EOS # 0.1 10^3/uL (0.0-0.5); EOS % 0.8 % (0.0-3.0); HEMATOCRIT 45.2 % (36.0-47.0); HEMOGLOBIN 15.1 g/dl (12.0-15.5); LYMPH # 2.7 10^3/uL (1.5-5.0); LYMPH % 17.2 % (24.0-44.0); MEAN CORPUSCULAR HEMOGLOBIN 29.8 pg (27.0-33.0); MEAN CORPUSCULAR HGB CONC 33.4 g/dl (32.0-36.5); MEAN CORPUSCULAR VOLUME 89.3 fl (80.0-96.0); NEUTROPHILS # 11.8 10^3/uL (1.5-8.5); PLATELET COUNT, AUTOMATED 316 10^3/uL (150-450); RED BLOOD COUNT 5.06 10^6/uL (4.00-5.40); WHITE BLOOD COUNT 15.8 10^3/uL (4.0-10.0)
[2021-01-08 13:55] LABS: ERYTHROCYTE SEDIMENTATION RATE 7 mm/hr (0-20)
[2021-01-08 13:58] LABS: BLOOD UREA NITROGEN 10 MG/DL (7-18); CALCIUM LEVEL 9.3 MG/DL (8.5-10.1); CARBON DIOXIDE LEVEL 27 MEQ/L (21-32); CHLORIDE LEVEL 108 MEQ/L (98-107); CREATININE FOR GFR 0.65 MG/DL (0.55-1.30); GLOMERULAR FILTRATION RATE > 60.0 (>60); GLUCOSE, FASTING 71 MG/DL (70-100); HCG, SERUM QUALITATIVE NEGATIVE (NEGATIVE); POTASSIUM SERUM 4.3 MEQ/L (3.5-5.1); SODIUM LEVEL 140 MEQ/L (136-145)
[2021-01-08] MEDS ORDERED: ACETAMINOPHEN 500 MG TAB PO ONE (15:10)
[2021-01-08] MEDS ORDERED: CLINDAMYCIN 900 MG in IV 1 EA IV ONE ×2 (15:15→18:00)
[2021-01-08] MEDS ORDERED: CLIN150C15 PO (15:47)
[2021-01-08] MEDS ORDERED: GLUCAGON INJ 1MG VIAL SC PRN (16:30)
[2021-01-08] MEDS ORDERED: GLUCOSE 4GM CHEW TABLET PO PRN (16:30)
[2021-01-08] MEDS ORDERED: DEXTROSE 50% 50 ML SYRINGE IV PRN (16:30)
--- NOTE | 2021-01-08 16:47 | HPEPDOC ---
[facility] Medical History & Physical Date of Admission Jan 08, 2021 Date of Service: Jan 08, 2021 Attending Physician: JASMYNE LORA MD MPH History and Physical CHIEF COMPLAINT: Skin infection HISTORY OF PRESENT ILLNESS: Ms. Hollingsworth is a 30 year old DM1 with CGM and insulin pump who presents to the ED for 2 days of progressive redness, warmth and pain to the inner aspect of her left thigh. The day before yesterday she noticed a small bug bite on her inner thigh and the following day she states that the surrounding area became slightly red and the area there was a bite became black and a scab fell off. This morning when she woke up, the redness had spread slightly and was more painful to light touch. She states that she has not noticed any spiders, bugs, or ticks biting her recently but she did have a prior brown recluse bite to her upper abdomen requiring hospitalization for antibiotics several years ago. No one else in her household has similar bites. She denies fevers, chills, abdominal pains, n/v/d, weakness, or any other concerns. She has not noticed any abnormal glucose read ings on her CGM. In the ED she received a single dose of abx. 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 REVIEW OF SYSTEMS: A full 10 point ROS was obtained and was unremarkable except as noted above. HOME MEDICATIONS: Please see below. PHYSICAL EXAMINATION: VITAL SIGNS: reviewed, please see below GENERAL APPEARANCE: Well appearing female, slightly overweight, NAD HEENT: EOMI, PERRLA, MMM CARDIOVASCULAR: RRR no M/R/G LUNGS: CTAB ABDOMEN: Soft, non tender, non distended, no rebound or guarding MUSCULOSKELETAL: Moving all extremities, no pain with active or passive ROM of LLE. EXTREMITIES: 2.5 inch in diameter area of raised, erythematous, and warm skin surrounding small central scab. There is superficial erythema that has been demarcated with pen surrounding that as well. This area is also warm. There is no fluctuance appreciated. NEUROLOGICAL: AOx3 PSYCHIATRIC: Euthymic LABORATORY DATA: See below. IMAGING: No recent MICROBIOLOGY: Please see below. ASSESSMENT: Ms. Hollingsworth is a 30 y/o IDDM1 presenting with progressive cellulitis likely d/t bug bite. Will admit for monitoring and IV abx. PLAN: # Cellulitis: Patient had prior brown recluse bite. That could be culprit today. Will support with IV abx today and likely transition to oral abx tomorrow. Will also monitor glucose and WBC. Meds: Clinda 900mg IV BID with next dose this evening Tylenol PRN pain Ice pack or heat pack PRN pain Continue to monitor for spread of erythema Cultures and stains pending from blood and wound site # IDDM 1: Patient reports well controlled glucose with CGM and insulin pump and last HA1c in the 5s. Will permit use of insulin pump in hospital with FSBG AC to monitor for higher dosage requirements in the setting of infection. Spoke with patient about importance of good glucose control while healing from infection. Meds: Insulin per pump/home regimen FSBG AC Hypoglycemic protocol # HTN: Patient states she had prior HTN and has been off of medications. She is slightly hypertensive on admission today however is uncomfortable. Will continue to monitor. Goal BP is 130/80 which could also be managed as an outpatient. # GERD Continue home omeprazole Dispo: Med surg Obs Diet: Consistent carbohydrate DVT Prophy: SCDs Consults: None Discharge: anticipate <2MN pending clinical improvement in cellulitis Vital Signs Vital Signs Date Time Temp Pulse Resp B/P (MAP) Pulse Ox O2 Delivery O2 Flow Rate FiO2 01/08/21 12:22 01/08/21 12:03 98.0 98 20 98 Room Air Laboratory Data Labs 24H Laboratory Tests 2 01/08/21 13:16: Immature Granulocyte % (Auto) 0.4, Neutrophils (%) (Auto) 75.0H, Lymphocytes (%) (Auto) 17.2L, Monocytes (%) (Auto) 6.0, Eosinophils (%) (Auto) 0.8, Basophils (%) (Auto) 0.6, Neutrophils # (Auto) 11.8H, Lymphocytes # (Auto) 2.7, Monocytes # (Auto) 1.0H, Eosinophils # (Auto) 0.1, Basophils # (Auto) 0.1, Nucleated Red Blood Cells % (auto) 0.0, Erythrocyte Sedimentation Rate 7, Anion Gap 5L, Glomerular Filtration Rate > 60.0, Lactic Acid Level 0.8, Calcium Level 9.3, C- Reactive Protein, Quantitative 1.80H, Human Chorionic Gonadotropin, Qual NEGATIVE CBC/BMP Laboratory Tests 01/08/21 13:16 Microbiology Microbiology 01/08/21 Herpes Simplex Virus I (PCR), Received Pending 01/08/21 Herpes Simplex Virus II (PCR), Received Pending 01/08/21 Gram Stain, Received Pending 01/08/21 Wound Culture, Received Pending 01/08/21 Blood Culture, Received Pending 01/08/21 Blood Culture, Received Pending Home Medications Scheduled Clindamycin Hcl (Clindamycin HCl) 150 Mg Capsule, 300 MG PO QID Miscellaneous Medications Insulin Lispro (Admelog) 100 Unit/Ml Inj, 100 UNIT SC sliding scale on pump Allergies Coded Allergies: gabapentin (Verified Adverse Reaction, Severe, "DISSOCIATIVE DISORDER", 10/20/18) pregabalin (Verified Adverse Reaction, Severe, "DISSOCIATIVE DISORDER", 10/20/18) A-FIB/CHADSVASC A-FIB History Current/History of A-Fib/PAF?: No Current PO Anticoag Therapy: No Age/Risk Factor Scoring CHADSVASC: CHADSVASC Response (Comments) Value Age Risk Factor Age < 65 years old 0 Gender Risk Factor Female 1 Hx of CHF No 0 Hx of HTN Yes 1 Hx of Stroke/TIA/or VTE No 0 Hx of Diabetes Yes 1 Hx of Vascular Disease Yes 1 Total 4 Treatment Treatment ordered: NONE JASMYNE LORA MD MPH Jan 08, 2021 16:47
[2021-01-08 19:16] LABS: RSV AMPLIFICATION NEGATIVE (NEGATIVE)
[2021-01-08 21:04] VITALS: BP 118/70
[2021-01-08] MEDS: ACETAMINOPHEN TAB 650MG DOSE (2X325MG) PO PRN (23:40)
[2021-01-09] MEDS ORDERED: CLINDAMYCIN 900 MG in IV 1 EA IV ONE ×2
[2021-01-09 06:00] VITALS: BP 132/68
[2021-01-09 06:14] LABS: HEMATOCRIT 40.8 % (36.0-47.0); HEMOGLOBIN 13.7 g/dl (12.0-15.5); MEAN CORPUSCULAR HEMOGLOBIN 29.7 pg (27.0-33.0); MEAN CORPUSCULAR HGB CONC 33.6 g/dl (32.0-36.5); MEAN CORPUSCULAR VOLUME 88.3 fl (80.0-96.0); PLATELET COUNT, AUTOMATED 271 10^3/uL (150-450); RED BLOOD COUNT 4.62 10^6/uL (4.00-5.40); WHITE BLOOD COUNT 13.9 10^3/uL (4.0-10.0)
[2021-01-09] MEDS: ACETAMINOPHEN TAB 650MG DOSE (2X325MG) PO PRN ×2 (07:02→13:48)
--- NOTE | 2021-01-09 08:02 | IPNPDOC ---
Text Note Date of Service The patient was seen on 01/09/21. NOTE SUBJECTIVE: Patient was febrile overnight and initially on morning exam erythema had spread just outside of margin of initial markings but pain was improved and warmth had improved. After lunch patient developed worsening in pain and borders of erythema had extended beyond margins marked in the morning. CT pending. PHYSICAL EXAMINATION: VITAL SIGNS: reviewed, please see below GENERAL APPEARANCE: Well appearing female, slightly overweight, NAD, sitting up in bed, talking on phone. HEENT: EOMI, PERRLA, MMM CARDIOVASCULAR: RRR no M/R/G LUNGS: CTAB ABDOMEN: Soft, non tender, non distended, no rebound or guarding MUSCULOSKELETAL: Moving all extremities, no pain with active or passive ROM of LLE. EXTREMITIES: 2.5 inch in diameter area of raised, erythematous but slightly decreased in intensity area of faintly blistered skin surrounding small central scab. There is localized areas of ecchymosis surrounding raised lesion. There is superficial erythema that has been demarcated with pen surrounding that as well and this has spread slightly outside of initial area of marking.There is no fluctuance appreciated. NEUROLOGICAL: AOx3 PSYCHIATRIC: Euthymic LABORATORY DATA: See below. IMAGING: No recent MICROBIOLOGY: Please see below. ASSESSMENT: Ms. Hollingsworth is a 30 y/o IDDM1 presenting with progressive cellulitis likely d/t bug bite. Will admit for monitoring and IV abx. PLAN: # Cellulitis: Patient had prior brown recluse bite. That could be culprit for this event as well. Her WBC is improving however she did fever last night and now has worsening pain and extension of her erythema. Will repeat ESR/CRP and obtain CT scan. Meds: Clinda 900mg IV TID Tylenol PRN pain 1st line Ibuprofen PRN pain 2nd line Percocet PRN severe pain Ice pack or heat pack PRN pain Continue to monitor for spread of erythema Cultures and stains pending from blood and wound site Obtain CT scan Repeat inflammatory markers # IDDM 1: Patient reports well controlled glucose with CGM and insulin pump and last HA1c in the 5s. Will permit use of insulin pump in hospital with FSBG AC to monitor for higher dosage requirements in the setting of infection. Spoke with patient about importance of good glucose control while healing from infection. Meds: Insulin per pump/home regimen FSBG AC Hypoglycemic protocol # HTN: Patient states she had prior HTN and has been off of medications. She is slightly hypertensive on admission today however is uncomfortable. Will continue to monitor. Goal BP is 130/80 which could also be managed as an outpatient. # GERD Continue home omeprazole Dispo: Med surg Diet: Consistent carbohydrate DVT Prophy: SCDs Consults: None Discharge: Will change to inpatient status VS,Fishbone, I+O VS, Fishbone, I+O Laboratory Tests 01/08/21 13:16 01/09/21 05:27 Vital Signs Date Time Temp Pulse Resp B/P (MAP) Pulse Ox O2 Delivery O2 Flow Rate FiO2 01/09/21 06:00 98.4 114 21 132/68 (89) 96 Room Air I&O- Last 24 Hours up to 6 AM 01/09/21 06:00 Intake Total 460 ml Output Total 600 ml Balance -140 ml JASMYNE LORA MD MPH Jan 09, 2021 08:02
[2021-01-09] MEDS ORDERED: CLINDAMYCIN 150MG CAPSULE PO SCH (09:00)
[2021-01-09 14:00] VITALS: BP 110/58
[2021-01-09] MEDS ORDERED: PERCOCET 5MG/325MG TAB PO PRN (14:05)
[2021-01-09] MEDS: IBUPROFEN 600MG TAB PO PRN ×2 (14:18→21:59)
[2021-01-09] MEDS ORDERED: ISOVUE-370 76% 100ML VIAL As Ordered ONE (14:59)
[2021-01-09 15:29] LABS: C REACTIVE PROTEIN QUANTITATIV 5.12 MG/DL (0.00-0.30); CK-MB VALUE MASS < 1.0 NG/ML (<3.6); CPK CREATINE PHOSPHOKINASE 98 U/L (26-192); MB/CK RELATIVE INDEX 1.02 (< OR =4)
[2021-01-09] MEDS ORDERED: CLINDAMYCIN 900 MG in IV 1 EA IV SCH (17:00)
--- NOTE | 2021-01-09 17:00 | REP ---
INDICATION: progressive left thigh cellulitis in dm1 patient. COMPARISON: None. TECHNIQUE: Axial images of the left thigh and femur performed following the intravenous administration of 100 cc of Isovue 370. Sagittal and coronal reconstruction images are performed. FINDINGS: The left femur is intact with no fracture, cortical destruction or periosteal reaction. There is no evidence of osteomyelitis. Ill-defined streaky density is seen in the subcutaneous soft tissues of the proximal to mid anteromedial thigh compatible with cellulitis. There is no associated fluid collection or abscess. Multiple mildly enlarged lymph nodes are seen in the left inguinal region. No other abnormalities are seen. IMPRESSION: The left femur is intact with no fracture or osteomyelitis. There are findings of superficial cellulitis involving the soft tissues of the anteromedial proximal to mid thigh. No abscess collection is seen. There is relatively mild left inguinal adenopathy. <Electronically signed by Gianluca Arboleda > 01/09/21 0399
[2021-01-09] MEDS: PIPERACILLIN/TAZOBACTAM SOD 3.375 GM in D5W MINI-BAG PLUS 50 ML IV SCH (17:59)
[2021-01-09] MEDS: VANCOMYCIN HCL 1,000 MG, VIAL MATE ADAPTER 1 EACH in NS 250 ML IV SCH (19:32)
[2021-01-09] MEDS ORDERED: VANCOMYCIN HCL 750 MG, VIAL MATE ADAPTER 1 EACH in NS 250 ML IV ONE (20:00)
[2021-01-09 22:00] VITALS: BP 138/80
[2021-01-10] MEDS: PIPERACILLIN/TAZOBACTAM SOD 3.375 GM in D5W MINI-BAG PLUS 50 ML IV SCH ×5 (00:38→23:36)
[2021-01-10] MEDS: VANCOMYCIN HCL 1,000 MG, VIAL MATE ADAPTER 1 EACH in NS 250 ML IV SCH ×3 (02:54→20:08)
[2021-01-10] MEDS: ACETAMINOPHEN TAB 650MG DOSE (2X325MG) PO PRN ×2 (05:56→12:26)
[2021-01-10 06:00] VITALS: BP 113/55
[2021-01-10 06:20] LABS: HEMATOCRIT 37.9 % (36.0-47.0); HEMOGLOBIN 12.5 g/dl (12.0-15.5); MEAN CORPUSCULAR HEMOGLOBIN 29.6 pg (27.0-33.0); MEAN CORPUSCULAR VOLUME 89.6 fl (80.0-96.0); PLATELET COUNT, AUTOMATED 219 10^3/uL (150-450); RED BLOOD COUNT 4.23 10^6/uL (4.00-5.40); WHITE BLOOD COUNT 8.2 10^3/uL (4.0-10.0)
[2021-01-10 14:00] VITALS: BP 116/60
--- NOTE | 2021-01-10 18:56 | IPNPDOC ---
Date Seen The patient was seen on 01/10/21. Progress Note SUBJECTIVE: Patient reported had worsened erythema last night and was started on IV abx. She feels better today and erythema is now regressing from previous borders. Afebrile overnight. WBC trended down to from 13.9 to 8.2. OBJECTIVE PHYSICAL EXAMINATION: VITAL SIGNS: Please see below. General: No acute distress, Alert Eyes: Normal sclera, EOMI HENT: Atraumatic Cardiovascular: Normal rate, normal rhythm. Pulmonary: Clear to auscultation b/l, no wheezing GI: Soft, nontender, nondistended Skin: L. proximal anterior thigh with erythematous raised lesion, central depression. Erythema is regressing from the borders that were marked. No discharge. Indurated and tender on exam. Neuro: CN grossly intact. No focal deficits. Strengths equal b/l. Psych: oriented x 3 LABORATORY DATA, IMAGING STUDIES, MICROBIOLOGY: Please see below. ASSESSMENT AND PLAN: 1. LLE cellulitis - likely 2/2 bug bite. Worsened while patient was still on PO abx. - Started on Vancomycin and zosyn last night with improvement. - Will keep patient on IV abx for 24-48 hr before transitioning back to PO. - Obtain MRSA nares, consider d/c Vancomycin soon. - Pain control. 2. IDDM - insulin pump per home regimen. 3. HTN - Off medications. Monitor. 4. GERD - Omeprazole. DVT ppx: SCD Code status: Full code DISPOSITION: . VS, I&O, 24H, Fishbone Vital Signs/I&O Vital Signs Date Time Temp Pulse Resp B/P (MAP) Pulse Ox O2 Delivery O2 Flow Rate FiO2 01/10/21 14:00 97.9 62 15 116/60 (78) 99 Room Air I&O- Last 24 Hours up to 6 AM 01/10/21 06:00 Intake Total 1610 ml Output Total 300 ml Balance 1310 ml Laboratory Data 24H LABS Laboratory Tests 2 01/10/21 05:32: Nucleated Red Blood Cells % (auto) 0.0 01/10/21 11:28: Bedside Glucose (Misc Panel) 168H 01/10/21 16:40: Bedside Glucose (Misc Panel) 134H 01/10/21 18:04: Vancomycin Level Trough 8.2L CBC/BMP Laboratory Tests 01/10/21 05:32 Microbiology Microbiology 01/08/21 Herpes Simplex Virus I (PCR), Received Pending 01/08/21 Herpes Simplex Virus II (PCR), Received Pending 01/08/21 Gram Stain - Final, Resulted 01/08/21 Wound Culture, Resulted Pending 01/08/21 Blood Culture - Preliminary, Resulted No Growth after 48 hours. All Specime... 01/08/21 Blood Culture - Preliminary, Resulted No Growth after 48 hours. All Specime... EDSON ESPAÑA MD Jan 10, 2021 18:56
[2021-01-10] MEDS ORDERED: VANCOMYCIN HCL 750 MG, VIAL MATE ADAPTER 1 EACH in NS 250 ML IV ONE (20:00)
[2021-01-10] MEDS: IBUPROFEN 600MG TAB PO PRN (20:09)
[2021-01-10 22:00] VITALS: BP 106/62
[2021-01-11] MEDS: VANCOMYCIN HCL 1,000 MG, VIAL MATE ADAPTER 1 EACH in NS 250 ML IV SCH ×3 (03:27→19:15)
[2021-01-11] MEDS: PIPERACILLIN/TAZOBACTAM SOD 3.375 GM in D5W MINI-BAG PLUS 50 ML IV SCH ×3 (05:44→19:15)
[2021-01-11 06:00] VITALS: BP 126/82
[2021-01-11 06:38] LABS: HEMATOCRIT 39.5 % (36.0-47.0); HEMOGLOBIN 12.9 g/dl (12.0-15.5); MEAN CORPUSCULAR HEMOGLOBIN 29.5 pg (27.0-33.0); MEAN CORPUSCULAR HGB CONC 32.7 g/dl (32.0-36.5); MEAN CORPUSCULAR VOLUME 90.2 fl (80.0-96.0); PLATELET COUNT, AUTOMATED 274 10^3/uL (150-450); RED BLOOD COUNT 4.38 10^6/uL (4.00-5.40)
[2021-01-11 07:53] LABS: BLOOD UREA NITROGEN 12 MG/DL (7-18); CALCIUM LEVEL 8.4 MG/DL (8.5-10.1); CARBON DIOXIDE LEVEL 24 MEQ/L (21-32); CHLORIDE LEVEL 111 MEQ/L (98-107); CREATININE FOR GFR 0.56 MG/DL (0.55-1.30); GLOMERULAR FILTRATION RATE > 60.0 (>60); GLUCOSE, FASTING 151 MG/DL (70-100); POTASSIUM SERUM 4.4 MEQ/L (3.5-5.1); SODIUM LEVEL 141 MEQ/L (136-145)
[2021-01-11] MEDS: IBUPROFEN 600MG TAB PO PRN (08:08)
[2021-01-11 08:28] LABS: C REACTIVE PROTEIN QUANTITATIV 1.62 MG/DL (0.00-0.30)
[2021-01-11 14:00] VITALS: BP 98/60
[2021-01-11 14:53] VITALS: BP 118/72
--- NOTE | 2021-01-11 19:18 | IPNPDOC ---
Date Seen The patient was seen on 01/11/21. Progress Note SUBJECTIVE: Patient has not noticed a significant change in Erythema since yesterday, although not worsening either. Afebrile overnight. Mild tenderness over wound but otherwise no other significant physical complaints. OBJECTIVE PHYSICAL EXAMINATION: VITAL SIGNS: Please see below. General: No acute distress, Alert Eyes: Normal sclera, EOMI HENT: Atraumatic Cardiovascular: Normal rate, normal rhythm. Pulmonary: Clear to auscultation b/l, no wheezing GI: Soft, nontender, nondistended Skin: L. proximal anterior thigh with erythematous raised lesion, central depression. Erythema is regressing from the borders that were marked. No discharge. Indurated and tender on exam. Neuro: CN grossly intact. No focal deficits. Strengths equal b/l. Psych: oriented x 3 LABORATORY DATA, IMAGING STUDIES, MICROBIOLOGY: Please see below. ASSESSMENT AND PLAN: 1. LLE cellulitis - likely 2/2 bug bite. Worsened while patient was still on PO abx. - Started on Vancomycin and zosyn last night with improvement yesterday but appear to be unchanged today. - C/w IV abx. If improve tomorrow, likely can be d/c on PO abx. - Pain control. 2. IDDM - insulin pump per home regimen. 3. HTN - Off medications. Monitor. 4. GERD - Omeprazole. DVT ppx: SCD Code status: Full code DISPOSITION: .Home, possibly tomorrow. VS, I&O, 24H, [facility] Vital Signs/I&O Vital Signs Date Time Temp Pulse Resp B/P (MAP) Pulse Ox O2 Delivery O2 Flow Rate FiO2 01/11/21 14:53 118/72 (87) 01/11/21 14:00 97.7 71 18 99 Room Air I&O- Last 24 Hours up to 6 AM 01/11/21 06:00 Intake Total 0 ml Balance 0 ml Laboratory Data 24H LABS Laboratory Tests 2 01/11/21 05:22: Anion Gap 6L, Glomerular Filtration Rate > 60.0, Calcium Level 8.4L, C-Reactive Protein, Quantitative 1.62H 01/11/21 05:25: Nucleated Red Blood Cells % (auto) 0.0 01/11/21 11:31: Bedside Glucose (Misc Panel) 143H 01/11/21 16:29: Bedside Glucose (Misc Panel) 130H 01/11/21 18:08: Vancomycin Level Trough 10.9 CBC/BMP Laboratory Tests 01/11/21 05:22 01/11/21 05:25 Microbiology Microbiology 01/08/21 Herpes Simplex Virus I (PCR), Received Pending 01/08/21 Herpes Simplex Virus II (PCR), Received Pending 01/08/21 Gram Stain - Final, Complete 01/08/21 Wound Culture - Final, Complete Micrococcus Luteus 01/08/21 Blood Culture - Preliminary, Resulted No Growth after 72 hours. All specime... 01/08/21 Blood Culture - Preliminary, Resulted No Growth after 72 hours. All specime... EDSON ESPAÑA MD Jan 11, 2021 19:18
[2021-01-11 20:40] VITALS: BP 112/68
[2021-01-12] MEDS: PIPERACILLIN/TAZOBACTAM SOD 3.375 GM in D5W MINI-BAG PLUS 50 ML IV SCH ×4 (00:21→17:42)
[2021-01-12] MEDS: VANCOMYCIN HCL 1,000 MG, VIAL MATE ADAPTER 1 EACH in NS 250 ML IV SCH ×3 (02:48→18:51)
[2021-01-12 06:00] VITALS: BP 124/78
[2021-01-12 06:16] LABS: HEMATOCRIT 35.5 % (36.0-47.0); HEMOGLOBIN 12.1 g/dl (12.0-15.5); MEAN CORPUSCULAR HEMOGLOBIN 30.3 pg (27.0-33.0); MEAN CORPUSCULAR HGB CONC 34.1 g/dl (32.0-36.5); PLATELET COUNT, AUTOMATED 259 10^3/uL (150-450); RED BLOOD COUNT 3.99 10^6/uL (4.00-5.40)
[2021-01-12 14:00] VITALS: BP 108/60
--- NOTE | 2021-01-12 15:21 | IPNPDOC ---
Text Note Date of Service The patient was seen on 01/12/21. NOTE SUBJECTIVE: Patient reports markedly improved pain and continued reduction in erythema and warmth. She has no other concerns. Reports good blood glucose control. PHYSICAL EXAMINATION: VITAL SIGNS: reviewed, please see below GENERAL APPEARANCE: Well appearing female, slightly overweight, NAD, sitting up in bed, talking on phone. HEENT: EOMI, PERRLA, MMM CARDIOVASCULAR: RRR no M/R/G LUNGS: CTAB ABDOMEN: Soft, non tender, non distended, no rebound or guarding MUSCULOSKELETAL: Moving all extremities, no pain with active or passive ROM of LLE. EXTREMITIES: 2.5 inch in diameter area of raised, erythematous but slightly decreased in intensity area of faintly blistered skin surrounding small central scab that is less erythematous than previous days with improved areas of s urrounding ecchymosis. The maximum area of extension on 01/10 has returned to a size comparable to day of admission. The area remains normal temperature and without fluctuance. NEUROLOGICAL: AOx3 PSYCHIATRIC: Euthymic LABORATORY DATA: See below. IMAGING: No recent MICROBIOLOGY: Please see below. ASSESSMENT: Ms. Hollingsworth is a 30 y/o IDDM1 presenting with progressive cellulitis likely d/t bug bite. Will admit for monitoring and IV abx. PLAN: # Cellulitis: Patient had prior brown recluse bite. That could be culprit for this event as well. Patient remains afebrile, WBC has returned to WNL, and CRP is downtrending and erythema is also reduced. Wound culture returned pansensitive micrococcus luteus. Will maintain IV antibiotics at least one more day and consider transitioning to oral antibiotics if erythema is greatly reduced tomorrow and likely observe one additional day given initial failure on oral antibiotics which were considered adequate for the m. luteus. Meds: Vancomycin Zosyn Tylenol PRN pain 1st line Ibuprofen PRN pain 2nd line Percocet PRN severe pain Ice pack or heat pack PRN pain Continue to monitor for spread of erythema # IDDM 1: Patient reports well controlled glucose with CGM and insulin pump and last HA1c in the 5s. Will permit use of insulin pump in hospital with FSBG AC to monitor for higher dosage requirements in the setting of infection. Spoke with patient about importance of good glucose control while healing from infection. Meds: Insulin per pump/home regimen FSBG AC Hypoglycemic protocol # HTN: Patient states she had prior HTN and has been off of medications. She is slightly hypertensive on admission today however is uncomfortable. Will continue to monitor. Goal BP is 130/80 which could also be managed as an outpatient. # GERD Continue home omeprazole Dispo: Med surg Diet: Consistent carbohydrate DVT Prophy: SCDs Consults: None Discharge: Inpatient pending clinical improvement VS,Fishbone, I+O VS, Fishbone, I+O Laboratory Tests 01/12/21 05:35 Vital Signs Date Time Temp Pulse Resp B/P (MAP) Pulse Ox O2 Delivery O2 Flow Rate FiO2 01/11/21 20:40 97.7 74 14 112/68 (83) 98 Room Air I&O- Last 24 Hours up to 6 AM 01/12/21 06:00 Intake Total 2325 ml Balance 2325 ml JASMYNE LORA MD MPH Jan 12, 2021 07:09
[2021-01-12 22:00] VITALS: BP 122/76
[2021-01-13] MEDS: PIPERACILLIN/TAZOBACTAM SOD 3.375 GM in D5W MINI-BAG PLUS 50 ML IV SCH ×2 (00:48→05:09)
[2021-01-13] MEDS: VANCOMYCIN HCL 1,000 MG, VIAL MATE ADAPTER 1 EACH in NS 250 ML IV SCH ×2 (02:39→11:19)
[2021-01-13] MEDS ORDERED: FLUCONAZOLE 100 MG TAB PO ONE (03:55)
[2021-01-13] MEDS ORDERED: PILL CUTTER 1 EACH XX PRN (04:10)
[2021-01-13] MEDS ORDERED: FLUCONAZOLE 50MG TABLET PO ONE (04:45)
[2021-01-13 05:52] LABS: HEMATOCRIT 36.1 % (36.0-47.0); HEMOGLOBIN 12.1 g/dl (12.0-15.5); MEAN CORPUSCULAR HEMOGLOBIN 29.9 pg (27.0-33.0); MEAN CORPUSCULAR HGB CONC 33.5 g/dl (32.0-36.5); MEAN CORPUSCULAR VOLUME 89.1 fl (80.0-96.0); PLATELET COUNT, AUTOMATED 265 10^3/uL (150-450); RED BLOOD COUNT 4.05 10^6/uL (4.00-5.40); WHITE BLOOD COUNT 10.2 10^3/uL (4.0-10.0)
[2021-01-13 06:00] VITALS: BP 126/85
[2021-01-13] MEDS ORDERED: BACT800T5 PO (11:24)
--- NOTE | 2021-01-13 12:57 | DS.PDOC ---
Discharge Summary General Date of Admission Jan 09, 2021 at 14:14 Date of Discharge 01/13/2021 Discharge Summary PRIMARY CARE PHYSICIAN: Cristóbal Zelaya ATTENDING AT TIME OF DISCHARGE: Dr. Mary Stallworth, DO DISCHARGE DIAGNOS(E)S: Left lower extremity cellulitis Suspicion that this was caused by bug/spider bite Diabetes mellitus type 1 Hypertension GERD HPI & HOSPITAL COURSE: Patient presented to the emergency department with what appears to be left lower extremity cellulitis in the region of the left proximal, medial, thigh. She was initially treated with clindamycin, but this did not seem to be effective, therefore she was transitioned over to vancomycin and Zosyn. This regimen has been quite effective, she has shown remarkable improvement over the past few days, today only has an area that is approximately 2 cm x 1 cm that is erythematous and raised, whereas it has been almost 6 inches to begin with. CRP went down. Pain is significantly improved, she has not required treatment. For the past 2 days or so. There was never any abscess. We will transition her over to Bactrim which she can begin tonight, and then continue twice daily for an additional 3 days. Otherwise she appears to be stable and ready for discharge at this time. PHYSICAL EXAMINATION ON DISCHARGE: GENERAL: Awake, alert, oriented x3. She is in good spirits. CARDIOVASCULAR EXAMINATION: Regular rate and rhythm, with no rubs, gallops, or murmur. RESPIRATORY EXAMINATION: Clear to auscultation bilaterally with no wheezes, rales, or rhonchi. ABDOMINAL EXAMINATION: Soft, nontender, nondistended. Bowel sounds present. EXTREMITIES: No clubbing or edema noted. 2+ pulses in the radial bilaterally. Only small area of erythema on the left inner thigh as described above. Significantly improved from prior. DISPOSITION: Home DISCHARGE INSTRUCTIONS: Follow-up with primary care provider in 7-10 days. Diet as tolerated. Activity as tolerated. If symptoms return, or if you experience worsening of your symptoms, please call your doctor or return to the emergency department. Vital Signs/I&Os Vital Signs Date Time Temp Pulse Resp B/P (MAP) Pulse Ox O2 Delivery O2 Flow Rate FiO2 01/13/21 06:00 97.6 76 16 126/85 (99) 96 Room Air I&O- Last 24 Hours up to 6 AM 01/13/21 06:00 Intake Total 1870 ml Output Total 1000 ml Balance 870 ml Laboratory Data Labs 24H Laboratory Tests 2 01/12/21 16:33: Bedside Glucose (Misc Panel) 134H 01/13/21 05:31: Nucleated Red Blood Cells % (auto) 0.0 CBC/BMP Laboratory Tests 01/13/21 05:31 FSBS Laboratory Tests Test 01/12/21 16:33 Range/Units Bedside Glucose (Misc Panel) 134 70-105 MG/DL Microbiology Microbiology 01/08/21 Herpes Simplex Virus I (PCR) - Final, Complete 01/08/21 Herpes Simplex Virus II (PCR) - Final, Complete 01/08/21 Gram Stain - Final, Complete 01/08/21 Wound Culture - Final, Complete Micrococcus Luteus 01/08/21 Blood Culture - Preliminary, Resulted No Growth after 72 hours. All specime... 01/08/21 Blood Culture - Preliminary, Resulted No Growth after 72 hours. All specime... Discharge Medications Scheduled Insulin Lispro (Admelog) 100 Unit/Ml Inj, 1 DOSE SC ASDIRECTED, (Reported) SLIDING SCALE ON PUMP Sulfamethoxazole/Trimethoprim (Bactrim Ds Tablet) 1 Each Tablet, 1 TAB PO BID Allergies Coded Allergies: gabapentin (Verified Adverse Reaction, Severe, "DISSOCIATIVE DISORDER", 10/20/18) pregabalin (Verified Adverse Reaction, Severe, "DISSOCIATIVE DISORDER", 10/20/18) MARY STALLWORTH DO Jan 13, 2021 12:57
== END 2021-01-13 12:50 | disposition home or self-care (01) | DRG 383 ==
LOC: M ED 12:02 → M ED INP 12:03 → UNDOADMOB 12:03 → ENRESERV 19:28 → M ED INP 21:04 → M MSPAV 21:04 → OBSVTOIN 01-09 14:14 → INTOOBSV 01-09 14:14 → UNDODISIN 01-13 12:50
PROVIDERS: ADMIT General Practice; ATTEND Neuromusculoskeletal Medicine & OMM
DX: L03.116 Cellulitis of left lower limb (principal); E10.40 Type 1 diabetes mellitus with diabetic neuropathy, unspecified; E10.319 Type 1 diabetes mellitus with unspecified diabetic retinopathy without macular edema; E28.2 Polycystic ovarian syndrome; I10 Essential (primary) hypertension; K21.9 Gastro-esophageal reflux disease without esophagitis; F17.200 Nicotine dependence, unspecified, uncomplicated; Z79.4 Long term (current) use of insulin; Z88.8 Allergy status to other drugs, medicaments and biological substances; Z79.899 Other long term (current) drug therapy; B96.89 Other specified bacterial agents as the cause of diseases classified elsewhere

== ENCOUNTER → 2021-03-15 | Outpatient (REF) | payer OTHER ==
[~2021-03-15] MED LIST changes: +BACT800T5 PO; +CLIN150C17 PO
== END ==
LOC: M SFHCWAGY 13:07
PROVIDERS: ATTEND Nurse Practitioner Women's Health
DX: Z12.4 Encounter for screening for malignant neoplasm of cervix (principal); Z01.419 Encounter for gynecological examination (general) (routine) without abnormal findings

== ENCOUNTER → 2021-05-20 | Outpatient (CLI) | payer OTHER ==
[~2021-05-20] MED LIST changes: +[UNRECOGNIZED DRUG - SUPPLY]
[2021-05-20 11:41] LABS: HEMATOCRIT 43.7 % (36.0-47.0); HEMOGLOBIN 14.4 g/dl (12.0-15.5); MEAN CORPUSCULAR HEMOGLOBIN 29.1 pg (27.0-33.0); MEAN CORPUSCULAR VOLUME 88.3 fl (80.0-96.0); PLATELET COUNT, AUTOMATED 368 10^3/uL (150-450); RED BLOOD COUNT 4.95 10^6/uL (4.00-5.40); WHITE BLOOD COUNT 9.7 10^3/uL (4.0-10.0)
[2021-05-20 12:07] LABS: MALB URINE SIEMENS 11.4 MG/L; MAU/CREAT RATIO 8.4 MCG/MG (0.0-30.0)
[2021-05-20 12:15] LABS: ALBUMIN 3.7 GM/DL (3.2-5.2); ALT/SGPT 23 U/L (12-78); BILIRUBIN,TOTAL 0.4 MG/DL (0.2-1.0); BLOOD UREA NITROGEN 10 MG/DL (7-18); CALCIUM LEVEL 8.8 MG/DL (8.5-10.1); CARBON DIOXIDE LEVEL 27 MEQ/L (21-32); CHLORIDE LEVEL 109 MEQ/L (98-107); CHOLESTEROL LEVEL 198 MG/DL (<200); CREATININE FOR GFR 0.62 MG/DL (0.55-1.30); GLOMERULAR FILTRATION RATE > 60.0 (>60); GLUCOSE, FASTING 97 MG/DL (70-100); HDL CHOLESTEROL 36 MG/DL (>40); LDL CHOLESTEROL 140 MG/DL (<100); NON-HDL-C 162 MG/DL; POTASSIUM SERUM 4.4 MEQ/L (3.5-5.1); SODIUM LEVEL 141 MEQ/L (136-145); TOTAL PROTEIN 7.2 GM/DL (6.4-8.2); TRIGLYCERIDES LEVEL 109 MG/DL (<150)
== END ==
LOC: M LABSMTC 09:00
PROVIDERS: ATTEND Internal Medicine Endocrinology, Diabetes & Metabolism
DX: E10.649 Type 1 diabetes mellitus with hypoglycemia without coma (principal); E04.0 Nontoxic diffuse goiter
CPT/HCPCS: 80053; 80061; 82043; 84443; 85027; U0003

== ENCOUNTER 2021-05-24 09:25 | Day surgery (SDC) | payer OTHER ==
[~2021-05-24] VITALS: Ht 162.6 cm; Wt 80.2 kg
[~2021-05-24 09:25] MED LIST changes: +LIDOCAINE 1% MDV 20ML VIAL SQ PRN; +LR 1,000 ML IV ONE
[2021-05-24 09:55] LABS: HEMATOCRIT 43.3 % (36.0-47.0); HEMOGLOBIN 14.8 g/dl (12.0-15.5); MEAN CORPUSCULAR HEMOGLOBIN 29.9 pg (27.0-33.0); MEAN CORPUSCULAR HGB CONC 34.2 g/dl (32.0-36.5); MEAN CORPUSCULAR VOLUME 87.5 fl (80.0-96.0); PLATELET COUNT, AUTOMATED 324 10^3/uL (150-450); RED BLOOD COUNT 4.95 10^6/uL (4.00-5.40); WHITE BLOOD COUNT 10.9 10^3/uL (4.0-10.0)
[2021-05-24] MEDS ORDERED: MIDAZOLAM INJ 2MG/2ML VIAL (J2250 PER 1MG) As Ordered ONE (10:56)
[2021-05-24] MEDS ORDERED: fentaNYL 100 MCG/2 ML INJECTION (J3010) As Ordered ONE (10:56)
[2021-05-24] MEDS ORDERED: LIDOCAINE 2% 100MG/5ML SDV (FOR ANES.) As Ordered ONE (10:57)
[2021-05-24] MEDS ORDERED: ROCURONIUM BROMIDE 50 MG/5 ML VIAL As Ordered ONE (10:57)
[2021-05-24] MEDS ORDERED: propofoL 200 MG/20 ML VIAL As Ordered ONE (10:57)
[2021-05-24] MEDS ORDERED: BUPIVACAINE HCL 0.25% 30ML VIAL As Ordered ONE (11:27)
[2021-05-24] MEDS ORDERED: ACETAMINOPHEN 1000MG 100ML IV BTL (OFIRMEV) (J0131 PER 10MG) As Ordered ONE (12:06)
[2021-05-24] MEDS ORDERED: ONDANSETRON 4MG/2ML VIAL As Ordered ONE (12:07)
[2021-05-24] MEDS ORDERED: METOCLOPRAMIDE INJ 10MG/2ML VIAL (J2765 PER 1) As Ordered ONE (12:07)
[2021-05-24] MEDS ORDERED: SUGAMMADEX SODIUM 500 MG/5 ML VIAL (BRIDION) As Ordered ONE (12:08)
[2021-05-24] MEDS ORDERED: GLYCOPYRROLATE INJ 0.2 MG/ML 2 ML VIAL As Ordered ONE (12:29)
[2021-05-24] MEDS ORDERED: ePHEDrine SULFATE 25 MG/5 ML(5MG/ML) SYRINGE As Ordered ONE (12:29)
[2021-05-24] MEDS ORDERED: KETOROLAC 60MG 2ML VIAL As Ordered ONE (13:12)
[2021-05-24] MEDS ORDERED: HYDROMORPHONE HCL 0.5 MG/ 0.5 ML SYRINGE (J1170 PER 1) IV PRN (13:50)
[2021-05-24] MEDS ORDERED: LR 1,000 ML IV SCH (13:50)
[2021-05-24] MEDS ORDERED: fentaNYL 100 MCG/2 ML INJECTION (J3010) IV PRN (13:50)
[2021-05-24] MEDS ORDERED: ONDANSETRON 4MG/2ML VIAL IV PRN (13:50)
[2021-05-24] MEDS ORDERED: oxyCODONE 5MG TAB PO PRN (13:50)
--- NOTE | 2021-05-24 13:50 | ROOPDOC ---
[facility] Report Of Operation Report of Operation DATE OF PROCEDURE: 05/24/21 PREPROCEDURE DIAGNOSES: Satisfied parity with undesired fertility. POSTPROCEDURE DIAGNOSES: Satisfied parity with undesired fertility. Left paratubal cyst PROCEDURE: Diagnostic operative laparoscopy with bilateral salpingectomy, lysis of adhesions and left paratubal cystectomy SURGEON: Bebe Kahn MD K 12 PRINCIPAL: None ANESTHESIA: General endotracheal anesthesia. INTRAVENOUS FLUIDS: 1000 mL of lactated Ringer's solution. ESTIMATED BLOOD LOSS: Approximately 5 mL. URINE OUTPUT: 200 mL. PREOPERATIVE ANTIBIOTICS: None. SPECIMENS: Bilateral fallopian tubes and left paratubal cyst. COMPLICATIONS: None OPERATIVE FINDINGS: Patient with omental adhesions to the anterior uterus and anterior abdominal wall. Normal-appearing right ovary and fallopian tube. Left ovary appeared to be normal. There was approximately 4 cm left paratubal cysts with both solid and cystic components. DESCRIPTION OF PROCEDURE: After informed consent was obtained and written consent was reviewed, the patient was brought to the operating room where she was placed under general endotracheal anesthesia. She was then placed in the lithotomy position. She was prepped and draped in a normal sterile fashion. A time-out in the operating room was then performed identifying the patient, procedure to be performed, as well as drug allergies. [place] speculum was then placed revealing the cervix. The anterior lip of the cervix was grasped with a single-tooth tenaculum. A Hulka tenaculum was then advanced through the cervical os for a means to manipulate the uterus. Single-tooth tenaculum as well as the speculum was removed. Bladder was drained. Gloves were changed. Attention was turned to the patient's abdomen where 0.25% Marcaine was infused in umbilical region. This area was incised and a 5 mm trocar and sleeve was advanced through this incision. The laparoscope was then replac ed revealing intraabdominal placement. Pneumoperitoneum was then obtained with CO2 gas. The abdomen was then surveyed with the above-noted findings. Two additional port sites were placed. One port site was placed 2 cm above the pubis symphysis in th e midline. This area was infused with 0.25% Marcaine. An incision was made in this area and 8 mm trocar and sleeve was advanced through this incision under direct visualization. A second accessory port was placed left side of the patient's abdomen. This area was infused with 0.25% Marcaine. A 5 mm trocar and sleeve was advanced through this incision under direct visualization. First, lysis of adhesions was performed releasing the omentum adhesions from the anterior abdominal wall and the fundal portion of the uterus. This was performed using harmonic scalpel device. Next, the right fallopian tube was then placed on traction. Using Harmonic Alex scalpel device, the mesosalpinx was dissected underneath the fallopian tube and was transected at the level of the uterus. Specimen was then brought out the port site. The left fallopian tube was dissected along the left mesosalpinx underneath the fallopian tube and transected at the level of the uterus to include the left paratubal cysts. The specimen was then placed in the Endo Catch bag the suprapubic port incision was extended and the specimen was removed the specimen was removed. Surgical sites were inspected and noted to be hemostatic. Pneumoperitoneum was then released. The fascia of the suprapubic port site was closed with 0 Vicryl. Skin was closed at all port sites with #4-0 Monocryl and was dressed with Dermabond. Jean catheter as well as a Hulka tenaculum was removed. The patient was then taken out of the lithotomy position, was awakened from general anesthesia and taken to recovery in stable condition. Counts were correct. BEBE KAHN MD. May 24, 2021 13:50
[2021-05-24] MEDS ORDERED: PERC5TAB12 PO (13:54)
[2021-05-24] MEDS ORDERED: IBUP80TA PO (13:56)
[2021-05-24 14:55] VITALS: BP 160/85
[2021-05-24] MEDS ORDERED: KETOROLAC 30 MG/ML 1ML VIAL IV SCH (20:00)
== END 2021-05-24 15:00 | disposition home or self-care (01) ==
LOC: M SDC 09:25
PROVIDERS: ATTEND Obstetrics & Gynecology
DX: Z30.2 Encounter for sterilization (principal); N83.292 Other ovarian cyst, left side; N73.6 Female pelvic peritoneal adhesions (postinfective); F17.290 Nicotine dependence, other tobacco product, uncomplicated; I10 Essential (primary) hypertension; E78.5 Hyperlipidemia, unspecified; E10.9 Type 1 diabetes mellitus without complications; Z79.4 Long term (current) use of insulin; M79.7 Fibromyalgia; E28.2 Polycystic ovarian syndrome; K21.9 Gastro-esophageal reflux disease without esophagitis; E04.9 Nontoxic goiter, unspecified; F41.9 Anxiety disorder, unspecified; Z88.8 Allergy status to other drugs, medicaments and biological substances; Z79.899 Other long term (current) drug therapy
CPT/HCPCS: 36415; 58661; 58662; 81025; 85027; 86850; 86900; 86901; 88305; J0131; J1885; J2250; J2405; J2765; J3010

== ENCOUNTER 2021-07-12 01:22 | Emergency (ER) | payer OTHER ==
[~2021-07-12] VITALS: Ht 162.6 cm; Wt 80.0 kg
[~2021-07-12 01:22] MED LIST changes: +IBUP80TA PO; -LIDOCAINE 1% MDV 20ML VIAL SQ PRN; -LR 1,000 ML IV ONE; +PERC5TAB12 PO
[2021-07-12 01:23] VITALS: BP 139/86
== END 2021-07-12 05:21 | disposition left against medical advice (07) ==
LOC: M ED 01:22
DX: Z53.29 Procedure and treatment not carried out because of patient's decision for other reasons (principal)

== ENCOUNTER → 2022-05-10 | Outpatient (CLI) | payer OTHER | LOC: M RAD 09:54 | PROVIDERS: ATTEND Family Medicine Addiction Medicine | DX: R22.42 Localized swelling, mass and lump, left lower limb (principal) ==

== ENCOUNTER → 2022-07-15 | Outpatient (REF) | payer OTHER | LOC: M LAB REF 18:13 | PROVIDERS: ATTEND Physician Assistant | DX: J02.9 Acute pharyngitis, unspecified (principal); Z20.828 Contact with and (suspected) exposure to other viral communicable diseases ==

== ENCOUNTER → 2022-08-13 | Outpatient (CLI) | payer OTHER ==
[~2022-08-13] MED LIST changes: +AMPH1TAB2 PO; +CELE10TA PO
== END ==
LOC: M LABSMTC 10:31
PROVIDERS: ATTEND Anesthesiology
DX: Z01.812 Encounter for preprocedural laboratory examination (principal); Z11.52 Encounter for screening for COVID-19

== ENCOUNTER 2022-08-17 10:12 | Day surgery (SDC) | payer OTHER ==
[~2022-08-17] VITALS: Ht 162.6 cm; Wt 78.5 kg
[~2022-08-17 10:12] MED LIST changes: +NS 1,000 ML IV ONE
[2022-08-17] MEDS ORDERED: propofoL 200 MG/20 ML VIAL As Ordered ONE (11:30)
[2022-08-17] MEDS ORDERED: LIDOCAINE 2% 100MG/5ML SDV (FOR ANES.) As Ordered ONE (11:30)
[2022-08-17 12:20] VITALS: BP 141/85
== END 2022-08-17 12:34 | disposition home or self-care (01) ==
LOC: M OPP 10:12
PROVIDERS: ATTEND Surgery
DX: Z12.11 Encounter for screening for malignant neoplasm of colon (principal); Z86.010 Personal history of colon polyps; K64.0 First degree hemorrhoids; G47.33 Obstructive sleep apnea (adult) (pediatric); E10.9 Type 1 diabetes mellitus without complications; F32.9 Major depressive disorder, single episode, unspecified; F41.9 Anxiety disorder, unspecified; F17.200 Nicotine dependence, unspecified, uncomplicated; Z79.1 Long term (current) use of non-steroidal anti-inflammatories (NSAID); Z79.4 Long term (current) use of insulin; Z79.899 Other long term (current) drug therapy; Z88.8 Allergy status to other drugs, medicaments and biological substances; Z86.14 Personal history of Methicillin resistant Staphylococcus aureus infection

== ENCOUNTER → 2022-09-05 | Outpatient (REF) | payer OTHER ==
[~2022-09-05] MED LIST changes: -NS 1,000 ML IV ONE
[2022-09-05 12:42] LABS: BASO # 0.1 10^3/uL (0.0-0.2); EOS # 0.3 10^3/uL (0.0-0.5); EOS % 2.5 % (0.0-3.0); HEMATOCRIT 45.8 % (36.0-47.0); HEMOGLOBIN 14.9 g/dl (12.0-15.5); LYMPH # 3.2 10^3/uL (1.5-5.0); LYMPH % 28.8 % (24.0-44.0); MEAN CORPUSCULAR HEMOGLOBIN 29.6 pg (27.0-33.0); MEAN CORPUSCULAR HGB CONC 32.5 g/dl (32.0-36.5); MEAN CORPUSCULAR VOLUME 90.9 fl (80.0-96.0); MONO # 0.7 10^3/uL (0.0-0.8); MONO % 5.9 % (2.0-8.0); NEUTROPHILS # 6.9 10^3/uL (1.5-8.5); NEUTROPHILS % 61.4 % (36.0-66.0); PLATELET COUNT, AUTOMATED 254 10^3/uL (150-450); RED BLOOD COUNT 5.04 10^6/uL (4.00-5.40); WHITE BLOOD COUNT 11.3 10^3/uL (4.0-10.0)
[2022-09-05 12:45] LABS: THYROID STIMULATING HORMONE 1.546 uIU/ML (0.55-4.78)
[2022-09-05 12:47] LABS: FERRITIN 56.2 NG/ML (7.3-270.7); FOLATE 12.3 NG/ML (>5.4); FREE T4 1.14 NG/DL (0.89-1.76); IRON (FE) 120 UG/DL (50-170); PERCENT SATURATION 36.9 % (13.2-45.0); TOTAL IRON BINDING CAPACITY 325 UG/DL (250-425)
[2022-09-05 12:50] LABS: VITAMIN B12 LEVEL 392 PG/ML (211-911)
[2022-09-05 12:52] LABS: THYROGLOBULIN ANTIBODY < 15.0 U/ML (<60.0); THYROID PEROXIDASE ANTIBODY 35 U/ML (<60.0)
== END ==
LOC: M LAB REF 12:14
PROVIDERS: ATTEND Nurse Practitioner Family
DX: L65.9 Nonscarring hair loss, unspecified (principal); Z84.0 Family history of diseases of the skin and subcutaneous tissue; E04.1 Nontoxic single thyroid nodule

== ENCOUNTER → 2023-03-12 | Outpatient (CLI) | payer OTHER | LOC: M RAD 07:00 | PROVIDERS: ATTEND Family Medicine Addiction Medicine | DX: R11.2 Nausea with vomiting, unspecified (principal) | CPT/HCPCS: 78264; A9541 ==

== ENCOUNTER → 2023-03-29 | Outpatient (REF) | payer OTHER | LOC: M LAB REF 12:26 | PROVIDERS: ATTEND Nurse Practitioner Family | DX: J02.9 Acute pharyngitis, unspecified (principal) ==

== ENCOUNTER → 2023-10-23 | Outpatient (REF) | payer OTHER ==
[~2023-10-23] MED LIST changes: -OXYB5TAB10 PO; +OXYB5TAB14 PO
[2023-10-23 13:16] LABS: BASO # 0.1 10^3/uL (0.0-0.2); BASO % 0.9 % (0.0-1.0); EOS # 0.2 10^3/uL (0.0-0.5); EOS % 2.2 % (0.0-3.0); HEMATOCRIT 42.3 % (36.0-47.0); LYMPH % 28.3 % (24.0-44.0); MEAN CORPUSCULAR HEMOGLOBIN 29.2 pg (27.0-33.0); MEAN CORPUSCULAR HGB CONC 33.1 g/dl (32.0-36.5); MEAN CORPUSCULAR VOLUME 88.3 fl (80.0-96.0); MONO # 0.7 10^3/uL (0.0-0.8); MONO % 6.9 % (2.0-8.0); NEUTROPHILS # 6.5 10^3/uL (1.5-8.5); NEUTROPHILS % 61.1 % (36.0-66.0); PLATELET COUNT, AUTOMATED 332 10^3/uL (150-450); RED BLOOD COUNT 4.79 10^6/uL (4.00-5.40); WHITE BLOOD COUNT 10.5 10^3/uL (4.0-10.0)
[2023-10-23 13:37] LABS: LIPASE 27 U/L (12-53)
[2023-10-23 13:39] LABS: AMYLASE 42 U/L (30-118)
[2023-10-23 13:40] LABS: ALBUMIN 3.7 G/DL (3.2-5.2); ALKALINE PHOSPHATASE 51 U/L (46-116); ALT/SGPT 19 U/L (7.0-40); AST/SGOT 9 U/L (<34); BILIRUBIN,TOTAL 0.5 MG/DL (0.3-1.2); BLOOD UREA NITROGEN 12 MG/DL (9-23); CALCIUM LEVEL 9.2 MG/DL (8.5-10.1); CARBON DIOXIDE LEVEL 27 MMOL/L (20-31); CHLORIDE LEVEL 106 MMOL/L (98-107); CREATININE FOR GFR 0.57 MG/DL (0.55-1.30); GLOMERULAR FILTRATION RATE > 60.0 (>60); GLUCOSE, FASTING 102 MG/DL (60-100); POTASSIUM SERUM 4.9 MMOL/L (3.5-5.1); SODIUM LEVEL 139 MMOL/L (136-145); TOTAL PROTEIN 7.4 G/DL (5.7-8.2)
== END ==
LOC: M LAB REF 11:58
PROVIDERS: ATTEND Family Medicine Addiction Medicine
DX: R10.13 Epigastric pain (principal)

== ENCOUNTER → 2024-03-20 | Outpatient (REF) | payer OTHER | LOC: M LAB REF 17:25 | PROVIDERS: ATTEND Nurse Practitioner Family | DX: J02.9 Acute pharyngitis, unspecified (principal) ==

== ENCOUNTER → 2024-04-15 | Outpatient (CLI) | payer OTHER ==
[~2024-04-15] MED LIST changes: +MELO15TA28 PO; +METF-838; +ZANA4TAB PO
== END ==
LOC: M WUC 08:50
PROVIDERS: ATTEND Physician Assistant
DX: M54.2 Cervicalgia (principal); S29.012A Strain of muscle and tendon of back wall of thorax, initial encounter; X58.XXXA Exposure to other specified factors, initial encounter; Y92.9 Unspecified place or not applicable

== ENCOUNTER 2024-04-16 11:26 | Emergency (ER) | payer OTHER ==
[~2024-04-16] VITALS: Ht 162.6 cm; Wt 82.0 kg
[~2024-04-16 11:26] MED LIST changes: -MELO15TA28 PO; -METF-838; -ZANA4TAB PO
[2024-04-16 11:40] VITALS: TEMP 97.9
[2024-04-16] MEDS ORDERED: METF-838 (12:00)
[2024-04-16] MEDS: KETOROLAC 60MG 2ML VIAL IM ONE (13:57)
[2024-04-16] MEDS: TRIAMCINOLONE ACETONIDE 0.025% 80GM CREAM TOP SCH (14:05)
[2024-04-16] MEDS ORDERED: MELO15TA28 PO (15:22)
[2024-04-16] MEDS ORDERED: ZANA4TAB PO (15:22)
[2024-04-16 15:44] VITALS: BP 137/88; O2SAT 98
== END 2024-04-16 15:45 | disposition home or self-care (01) ==
LOC: M ED 11:26
DX: M50.30 Other cervical disc degeneration, unspecified cervical region (principal); M54.12 Radiculopathy, cervical region; M25.512 Pain in left shoulder; Z87.891 Personal history of nicotine dependence; G47.33 Obstructive sleep apnea (adult) (pediatric); K21.9 Gastro-esophageal reflux disease without esophagitis; E11.9 Type 2 diabetes mellitus without complications; F41.9 Anxiety disorder, unspecified; Z87.42 Personal history of other diseases of the female genital tract; Z87.440 Personal history of urinary (tract) infections; Z79.4 Long term (current) use of insulin; Z79.899 Other long term (current) drug therapy; Z88.8 Allergy status to other drugs, medicaments and biological substances
CPT/HCPCS: 72125; 73030; 96372; 99283; J1885

== ENCOUNTER 2024-04-17 23:17 | Emergency (ER) | payer OTHER ==
[~2024-04-17] VITALS: Ht 162.6 cm; Wt 82.0 kg
[~2024-04-17 23:17] MED LIST changes: +MELO15TA28 PO; +METF-838; +ZANA4TAB PO
[2024-04-18] MEDS: LIDOCAINE 5% (LIDODERM) PATCH TD ONE (06:48)
[2024-04-18] MEDS: ACETAMINOPHEN 325 MG TAB PO ONE (06:48)
[2024-04-18] MEDS: diazePAM 5MG TABLET PO ONE (06:49)
[2024-04-18] MEDS: KETOROLAC 60MG 2ML VIAL IM ONE (06:53)
[2024-04-18] MEDS ORDERED: LIDO5DIS41 TOP (10:20)
[2024-04-18] MEDS ORDERED: VALI5TAB PO (10:20)
[2024-04-18] MEDS ORDERED: MEDR4PAK PO (10:20)
[2024-04-18] MEDS ORDERED: OXYC-517 PO (10:20)
[2024-04-18] MEDS: methylPREDNISolone 125MG 2ML VIAL IM ONE (10:26)
[2024-04-18] MEDS ORDERED: TIZA10TA (10:30)
[2024-04-18] MEDS ORDERED: PRED20TA (10:30)
[2024-04-18 10:48] VITALS: BP 150/90; TEMP 97.1; O2SAT 100
== END 2024-04-18 10:50 | disposition home or self-care (01) ==
LOC: M ED 23:17
DX: M54.12 Radiculopathy, cervical region (principal); M25.78 Osteophyte, vertebrae; M48.02 Spinal stenosis, cervical region; M50.223 Other cervical disc displacement at C6-C7 level; E11.9 Type 2 diabetes mellitus without complications; G47.30 Sleep apnea, unspecified; Z90.49 Acquired absence of other specified parts of digestive tract; Z88.8 Allergy status to other drugs, medicaments and biological substances; Z79.4 Long term (current) use of insulin; Z79.899 Other long term (current) drug therapy
CPT/HCPCS: 72141; 96372; 99284; J1885; J2919

== ENCOUNTER 2024-04-19 12:38 | Emergency (ER) | payer OTHER ==
[~2024-04-19] VITALS: Ht 162.6 cm; Wt 81.8 kg
[~2024-04-19 12:38] MED LIST changes: +LIDO5DIS41 TOP; +MEDR4PAK PO; +OXYC-517 PO; +PRED20TA; +TIZA10TA; +VALI5TAB PO
[2024-04-19] MEDS: MORPHINE 4 MG/ML 1ML VIAL IV ONE ×2 (13:57→15:18)
[2024-04-19] MEDS: ONDANSETRON 4MG 2ML VIAL IV ONE (13:57)
[2024-04-19 15:29] VITALS: BP 182/92; TEMP 97; O2SAT 100
== END 2024-04-19 15:33 | disposition short-term general hospital (02) ==
LOC: EDBD 12:38 → M ED 12:38
DX: G95.29 Other cord compression (principal); R53.1 Weakness; M54.12 Radiculopathy, cervical region; M48.02 Spinal stenosis, cervical region; E11.9 Type 2 diabetes mellitus without complications; Z90.49 Acquired absence of other specified parts of digestive tract; Z88.8 Allergy status to other drugs, medicaments and biological substances; Z79.899 Other long term (current) drug therapy; Z79.4 Long term (current) use of insulin
CPT/HCPCS: 96374; 96375; 99284; J2405

== ENCOUNTER → 2024-10-16 | Outpatient (CLI) | payer OTHER ==
[2024-10-16 09:31] LABS: ALKALINE PHOSPHATASE 48 U/L (35-104); ALT/SGPT 13 U/L (7.0-40); AST/SGOT 9 U/L (<34); BILIRUBIN,TOTAL 0.7 MG/DL (0.3-1.2); BLOOD UREA NITROGEN 12 MG/DL (9-23); CALCIUM LEVEL 9.3 MG/DL (8.5-10.1); CARBON DIOXIDE LEVEL 27 MMOL/L (20-31); CHLORIDE LEVEL 108 MMOL/L (98-107); CHOLESTEROL LEVEL 167 MG/DL (<200); CHOLESTEROL RISK RATIO 4.82 (<5); CREATININE FOR GFR 0.59 MG/DL (0.55-1.30); GLOMERULAR FILTRATION RATE > 90.0 (>60); GLUCOSE, FASTING 78 MG/DL (60-100); HDL CHOLESTEROL 34.6 MG/DL (>40); LDL CHOLESTEROL 107.4 MG/DL (<100); NON-HDL-C 132.4 MG/DL; POTASSIUM SERUM 4.5 MMOL/L (3.5-5.1); SODIUM LEVEL 142 MMOL/L (136-145); TOTAL PROTEIN 7.5 G/DL (5.7-8.2); TRIGLYCERIDES LEVEL 125 MG/DL (<150)
[2024-10-16 09:33] LABS: THYROID STIMULATING HORMONE 1.452 uIU/ML (0.55-4.78); TOTAL 25(OH) VITAMIN D 10.5 NG/ML (20.0-100.0)
== END ==
LOC: M LAB 08:06
PROVIDERS: ATTEND Nurse Practitioner Family
DX: E10.649 Type 1 diabetes mellitus with hypoglycemia without coma (principal); E04.0 Nontoxic diffuse goiter; E55.9 Vitamin D deficiency, unspecified

== ENCOUNTER → 2024-10-16 | Outpatient (CLI) | payer OTHER | LOC: M RAD 07:55 | PROVIDERS: ATTEND Nurse Practitioner Family | DX: Z98.1 Arthrodesis status (principal) ==

== ENCOUNTER → 2025-01-19 | Outpatient (REF) | payer OTHER ==
[~2025-01-19] MED LIST changes: +LIDO1ADH93 TOP; -LIDO5DIS41 TOP
[2025-01-19 12:39] LABS: ALT/SGPT 12 U/L (7.0-40); AST/SGOT 13 U/L (<34); CALCIUM LEVEL 8.9 MG/DL (8.5-10.1); CARBON DIOXIDE LEVEL 25 MMOL/L (20-31); CHLORIDE LEVEL 104 MMOL/L (98-107); CHOLESTEROL LEVEL 172 MG/DL (<200); CHOLESTEROL RISK RATIO 4.63 (<5); CREATININE FOR GFR 0.64 MG/DL (0.55-1.30); GLOMERULAR FILTRATION RATE > 90.0 (>60); LDL CHOLESTEROL 114.7 MG/DL (<100); NON-HDL-C 134.9 MG/DL; POTASSIUM SERUM 4.4 MMOL/L (3.5-5.1); SODIUM LEVEL 139 MMOL/L (136-145); TRIGLYCERIDES LEVEL 101 MG/DL (<150)
[2025-01-19 13:17] LABS: CREATININE, URINE 150.1 MG/DL; MALB URINE SIEMENS 16.0 MG/L; MAU/CREAT RATIO 10.6 MCG/MG (0.0-30.0)
== END ==
LOC: M LAB REF 11:39
PROVIDERS: ATTEND Nurse Practitioner Family
DX: I10 Essential (primary) hypertension (principal); R63.5 Abnormal weight gain; K76.0 Fatty (change of) liver, not elsewhere classified

== ENCOUNTER → 2025-04-09 | Outpatient (REF) | payer OTHER ==
[2025-04-09 15:40] LABS: CALCIUM LEVEL 9.5 MG/DL (8.5-10.1); CARBON DIOXIDE LEVEL 25 MMOL/L (20-31); CHLORIDE LEVEL 104 MMOL/L (98-107); CREATININE FOR GFR 0.65 MG/DL (0.55-1.30); GLOMERULAR FILTRATION RATE > 90.0 (>60); MAGNESIUM LEVEL 1.8 MG/DL (1.8-2.4); POTASSIUM SERUM 4.7 MMOL/L (3.5-5.1); SODIUM LEVEL 139 MMOL/L (136-145)
[2025-04-09 15:41] LABS: TOTAL 25(OH) VITAMIN D 29.1 NG/ML (20.0-100.0)
== END ==
LOC: M LAB REF 14:31
PROVIDERS: ATTEND Nurse Practitioner Family
DX: R55 Syncope and collapse (principal); E55.9 Vitamin D deficiency, unspecified